=== PATIENT | male | born 1970 | race Caucasian/White ===

== ENCOUNTER 2019-07-26 09:43 | Emergency (ER) | payer OTHER, SELFPAY ==
--- NOTE | 2019-07-26 10:11 | DI.RAD.S_ITS ---
PROCEDURE: XR RIBS LT MIN 3V W CXR1V INDICATIONS: fall pain TECHNIQUE: 3 views of the left ribs were acquired, along with a single view chest. COMPARISON: [facility], , XR CHEST 1 VIEW, 12/06/2018, 21:17. FINDINGS: Surgical changes and devices: None Bones and chest wall: No displaced left fractures or dislocations. No suspicious bony lesions. Overlying soft tissues appear unremarkable. Lungs and pleura: No pleural effusions or pneumothorax. Lungs appear clear. Mediastinum: Mediastinal contours appear normal. Heart size is normal. IMPRESSION: No displaced left rib fractures are appreciated. No pneumothorax. Dictated by: Fly Antoine M.D. on 07/26/2019 at 9:49 Approved by: Fly Antoine M.D. on 07/26/2019 at 9:50
[2019-07-26 10:13] VITALS: BP 205/139; PULSE 92; RESP 18; TEMP 36.8; O2SAT 96; BMI 44.3
[2019-07-26] MEDS: KETOROLAC 60 MG/2 ML VIAL 30 MG IM (11:10)
--- NOTE | 2019-07-26 11:12 | ED_ITS ---
HPI - Fall <RONNY Charles - Last Filed: 07/26/19 21:50> General Chief Complaint: Abdominal Pain Stated Complaint: fell/ cracked rib Time Seen by Provider: 07/26/19 10:11 Source: patient Mode of arrival: Ambulatory History of Present Illness HPI Narrative: 48-year-old male presents to the emergency department complaining of left rib pain after fall. He states he was walking into a walk-in freezer at work when he slipped and fell hitting the left side of his ribs near the axillary region against a [place]. He denies hitting his head or any other injuries. Patient denies previous injury to this area. He denies nausea, vomiting, diarrhea, abdominal pain fevers, chills, chest pain, shortness of breath, or other concerns. He denies any significant medical history or allergies. Patient states does have history of high blood pressure but does not take any medications for this he states I am not a pill person. He also reports that his blood pressure today of 211/102 is lower than usual. Patient denies any headache, chest pain, dizziness, other concerns. Review of Systems <RONNY Charles - Last Filed: 07/26/19 21:50> Review of Systems Narrative: REVIEW OF SYSTEMS: GENERAL: Denies fever or chills. HENT: No head trauma. EYES: No double vision or vision loss. CARDIOVASCULAR: No chest pain or syncope. RESPIRATORY: No shortness of breath or cough. GASTROINTESTINAL: No nausea, vomiting, diarrhea, or constipation. MUSCULOSKELETAL: Complains of rib pain, see HPI. INTEGUMENTARY: No rash, lesions, or pruritus. NEURO: No numbness, tingling. PSYCH: No behavior or mood changes. Patient History <RONNY Charles - Last Filed: 07/26/19 21:50> Medical History No significant medical problems (Inactive) Social History Smoking Status: Former smoker Smoking Status: Former smoker Substance Use Type: does not use Exam <RONNY Charles - Last Filed: 07/26/19 21:50> Initial Vital Signs Initial Vital Signs: Vital Signs Temperature 98.2 F 07/26/19 10:13 Pulse Rate 92 H 07/26/19 10:13 Respiratory Rate 18 07/26/19 10:13 Blood Pressure 205/139 H 07/26/19 10:13 Pulse Oximetry 96 07/26/19 10:13 PHYSICAL EXAMINATION: GENERAL: Obese, alert, and cooperative. Answers questions promptly and appropriately. Vital signs noted. HENT: Normocephalic, atraumatic. EYES: Symmetrical, sclera white, no periorbital swelling. CARDIOVASCULAR: S1 and S2 sounds normal. Regular rate and rhythm, no murmurs, clicks, or bruits. No pedal edema. RESPIRATORY: Normal respiratory rate, trachea midline, airway patent. No stridor, nasal flaring or accessory muscle use. Lungs are clear in all mulligan. Patient is seen taking shallow breaths due to pain unless otherwise instructed. MUSCULOSKELETAL: Tenderness with palpation lateral left ribs approximately miah und rib 6 and 7. Pain is reproduced when patient raises his arm above head. Full range of motion of shoulder. No bruising or erythema or rash. Normal gait and coordination. Equal tone and mass bilaterally. No spinal tenderness or deformities. EXTREMITIES: CMS intact. SKIN: Warm, dry, soft, appropriate color for ethnicity. No lesions, rashes, or wounds. NEURO: Alert and Oriented X 3. No sensory deficits. PSYCH: Appropriate affect and mood. <Miladys Goode DO - Last Filed: 11/26/19 11:14> Initial Vital Signs Initial Vital Signs: Vital Signs Temperature 98.2 F 07/26/19 10:13 Pulse Rate 92 H 07/26/19 10:13 Respiratory Rate 18 07/26/19 10:13 Blood Pressure 205/139 H 07/26/19 10:13 Pulse Oximetry 96 07/26/19 10:13 Course <RONNY Charles - Last Filed: 07/26/19 21:50> Course Course Narrative: Patient was given Toradol in the emergency department to help with pain. Orders Ordered: Discontinued Medications Ketorolac Tromethamine (Toradol) 30 mg IM NOW ONE Stop: 07/26/19 11:05 Last Admin: 07/26/19 11:10 Dose: 30 mg Documented by: CPRUITT Vital Signs Vital signs: Vital Signs - 8 hr 07/26/19 10:13 07/26/19 11:21 Temperature 98.2 F Pulse Rate 92 H 99 H Respiratory Rate 18 18 Blood Pressure 205/139 H 211/102 H Pulse Oximetry 96 96 <Miladys Goode DO - Last Filed: 11/26/19 11:14> Orders Ordered: Discontinued Medications Ketorolac Tromethamine (Toradol) 30 mg IM NOW ONE Stop: 07/26/19 11:05 Last Admin: 07/26/19 11:10 Dose: 30 mg Documented by: CPRUITT Vital Signs Vital signs: Vital Signs - 8 hr 07/26/19 10:13 07/26/19 11:21 Temperature 98.2 F Pulse Rate 92 H 99 H Respiratory Rate 18 18 Blood Pressure 205/139 H 211/102 H Pulse Oximetry 96 96 MDM - Fall <Brigid WashingtonRONNY - Last Filed: 07/26/19 21:50> Medical Records Attestation: I reviewed the patient's medical records. Lab Data Attestation: I reviewed the patient's lab results. Imaging Data Chest x-ray: Radiologist's Impression: [place] [address] XRay Report Signed Patient: Edgardo Teague lMR#: [id number] : 1970Acct:[id number] Age/Sex: 48 / MDate of Service: 07/26/19 Loc: ED Accession Number: [id number] Procedure: XR ribs LT min 3V w CXR1V Ordering Provider: Miladys Goode D.O. PROCEDURE: XR RIBS LT MIN 3V W CXR1V INDICATIONS: fall pain TECHNIQUE: 3 views of the left ribs were acquired, along with a single view chest. COMPARISON: [facility], , XR CHEST 1 VIEW, 12/06/2018, 21:17. FINDINGS: Surgical changes and devices: None Bones and chest wall: No displaced left fractures or dislocations. No suspicious bony lesions. Overlying soft tissues appear unremarkable. Lungs and pleura: No pleural effusions or pneumothorax. Lungs appear clear. Mediastinum: Mediastinal contours appear normal. Heart size is normal. IMPRESSION: No displaced left rib fractures are appreciated. No pneumothorax. Dictated by: Fly Antoine M.D. on 07/26/2019 at 9:49 Approved by: Fly Antoine M.D. on 07/26/2019 at 9:50 MDM Narrative Medical decision making narrative: 28-year-old male who clearly has untreated hypertension without symptoms today, presents for left lateral rib pain after fall. X-rays negative for fractures. Pain is reproducible on exam which is evident that musculoskeletal injuries involved. Most likely rib contusion due to description of fall, location of pain, and reproduction of pain with palpation. Less likely costochondritis due to location of rib pain, less likely lung injury as x-ray was negative for fracture patient denies shortness of breath. Patient was encouraged to follow up with his primary care provider for further evaluation if symptoms continue. We discussed the importance of establishing a primary care provider to treat his blood pressure. Patient grew plan of care verbalized understanding. Return precautions given. Discharge Plan Departure Patient Disposition: Home Clinical Impression: Contusion of rib Discharge Date/Time: 07/26/19 11:23 Instructions: DI for Rib Contusion Activity Restrictions/Additional Instructions: Thank you for entrusting me with your care today. As discussed, yourr x-rays are negative for fractures. You most likely have a rib contusion. Remember to take 10 deep breaths 10 times a day to prevent pneumonia. You may take ibuprofen for pain (please not take this until 8 hours after a Toradol shot), and Tylenol. Follow up with your primary care provider in 1-2 weeks for further evaluation if your symptoms continue. Return emergency department for any new or worsening symptoms such as shortness of breath, chest pain, high fevers, or other concerns.
[2019-07-26 11:21] VITALS: BP 211/102; PULSE 99; RESP 18; O2SAT 96
== END 2019-07-26 11:23 | disposition home or self-care (01) ==
PROVIDERS: Emergency Provider Nurse Practitioner
DX: S20.212A Contusion of left front wall of thorax, initial encounter (principal); W01.10XA Fall on same level from slipping, tripping and stumbling with subsequent striking against unspecified object, initial encounter; Y99.0 Civilian activity done for income or pay
CPT/HCPCS: 71101; 96372; 99283; J1885

== ENCOUNTER 2021-08-24 07:41 | Inpatient (IN) | payer OTHER, MEDICAID, SELFPAY ==
[2021-08-24] VITALS (52 sets, daily range): BP systolic 174–238; BP diastolic 82–138; PULSE 60–98; RESP 3–35; TEMP 35.9–37.2; O2SAT 93–98; BMI 40.6; BMI 39.0
--- NOTE | 2021-08-24 07:40 | DI.CT.S_ITS ---
PROCEDURE: CT STROKE INDICATIONS: right weakness TECHNIQUE: Noncontrast 4.5 mm thick angled axial sections acquired from the foramen magnum to the vertex, with coronal reformats. For radiation dose reduction, the following was used: automated exposure control, adjustment of mA and/or kV according to patient size. COMPARISON: None. FINDINGS: Image quality: Excellent. CSF spaces: Basal cisterns are patent. No extra-axial fluid collections. Ventricles are normal in size and shape. Brain: No midline shift. No intracranial masses or hemorrhage. [place]-white matter interface is normal. Atherosclerotic calcification noted in the left vertebral artery. There is mild, diffuse cerebral volume loss. There are mild periventricular and subcortical white matter chronic microvascular ischemic changes. Skull and face: Calvarium and visualized facial bones are intact, without suspicious lesions. Sinuses: Mucosal thickening noted in the maxillary sinuses bilaterally, the sphenoid sinuses bilaterally, the ethmoid air cells bilaterally in the frontal sinuses bilaterally. The mastoids are clear. IMPRESSION: 1. No acute intracranial disease process. 2. No intracranial hemorrhage. 3. Pansinusitis. 4. Findings discussed with Dr. Goode on August 24, 2021 at 8:01 a.m.. This study fulfills neurological imaging criteria for inclusion or exclusion of acute stroke therapies based on available published neurological imaging guidelines. Dictated by: Mary Lou Kay MD, PhD on 08/24/2021 at 8:03 Approved by: Mary Lou Kay MD, PhD on 08/24/2021 at 8:07
--- NOTE | 2021-08-24 07:47 | ED_ITS ---
HPI - Neuro Symptoms/Deficit General Chief Complaint: Altered Mental Status Stated Complaint: possible stroke Time Seen by Provider: 08/24/21 07:50 History of Present Illness HPI Narrative: Patient is a 50-year-old male history of diabetes presenting as a code stroke. Last known well was midnight when he went to bed. Woke up this morning unable to move right side both arm and leg facial droop. He is right-hand dominant. 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 He lives with a 16-year-old daughter who states that he just came home from a trip recently. Patient states that yesterday he was at his normal baseline Related Data Home Medications Medication Instructions Recorded Confirmed No Known Home Medications 08/24/21 08/24/21 Allergies Allergy/AdvReac Type Severity Reaction Status Date / Time No Known Drug Allergies Allergy Verified 08/24/21 08:07 Review of Systems Review of Systems Narrative: GENERAL: Denies chills, fatigue, malaise, fever, sweats, travel HEENT: Denies sinus pain, ear pain, sore throat, difficulty swallowing, neck pain RESPIRATORY: Denies dyspnea, cough, wheezing, hemoptysis, sputum. CARDIOVASCULAR: Denies chest pain, palpitations, orthopnea, edema GASTROINTESTINAL: Denies nausea, vomiting, abdominal pain, diarrhea, constipation, melena. : Denies dysuria, frequency, incontinence, hematuria, urinary retention, flank pain. MUSCULOSKELETAL: Denies weakness, joint pain, or bony pain SKIN: No rash, no erythema, no pruritus NEUROLOGIC: See HPI PSYCHIATRIC: No concerning psychosocial issues. 12 point review of systems is negative except for those stated above and HPI Patient History Medical History (Updated 08/24/21 @ 10:55 by Giovany Marrero DO) CVA (cerebral vascular accident) Diabetes mellitus Surgical History (Updated 08/24/21 @ 10:55 by Giovany Marrero DO) No significant past surgical history Family History (Updated 08/24/21 @ 11:00 by Giovany Marrero DO) Mother Hypertension Father No pertinent past medical history Social History household members: children Smoking Status: Former smoker alcohol intake: never Smoking Status: Former smoker Substance Use Type: does not use Exam Initial Vital Signs Initial Vital Signs: Vital Signs Temperature 98.5 F 08/24/21 07:41 Pulse Rate 76 08/24/21 07:41 Respiratory Rate 18 08/24/21 07:41 Blood Pressure 197/112 H 08/24/21 07:41 Pulse Oximetry 96 08/24/21 07:41 GENERAL: Alert male HEENT: Head atraumatic,EOMI, pupils reactive, left facial droop CARDIOVASCULAR: Regular rate and rhythm without murmurs, rubs or gallops. RESPIRATORY: Breath sounds equal bilaterally, no wheezes rales or rhonchi. ABDOMEN: Soft, nontender. Normoactive bowel sounds all 4 quadrants. No guarding or rebound. EXTREMITIES: Normal range of motion, no clubbing or edema. Neurovascularly intact NEUROLOGICAL: Alert and oriented x4. Inability to move side mild left facial droop some mild slurring of speech as well. SKIN: Warm, dry, no laceration, no petechiae, no rashes or lesions. Scores NIH Stroke Scale Level of Conciousness: Alert, keenly responsive Ask month/age: Answers both questions correctly. Open/close eyes, close hand: Performs both tasks correctly Best gaze horizontal: Normal Visual mulligan: No visual loss Facial palsy: Minor paralysis, flattened nasolabial fold, asymmetry on smiling Left arm drift: No drift for full 10 sec Right arm drift: No effort against gravity Left leg drift: No drift for full 5 sec Right leg drift: No effort against gravity Limb ataxia: Absent Sensory on face/arms/legs: Normal, no sensory loss Best language: Mild to moderate, slurs some words Dysarthria: Mild to mod,some slurring Extinction or inattention: No abnormality Total NIH Stroke scale score: 9 Course Orders Ordered: ED Orders 08/24/21 07:50 Urine Drug Screen, Rapid Stat 08/24/21 08:25 COVID19 -Nasal swab/Pre-Proc Stat 08/25/21 05:00 Hemoglobin A1C% w Est Avg Glu Routine Acetaminophen (Acetaminophen 325 Mg Tablet) 650 mg PO Q6HR PRN PRN Reason: pain Last Admin: 08/24/21 18:20 Dose: 650 mg Documented by: Dextrose (Dextrose 50 % In Water 25 Gm/50 Ml Syringe) 25 gm IV PRN PRN PRN Reason: Hypoglycemia Enoxaparin Sodium (Enoxaparin 40 Mg/0.4 Ml Syringe) 40 mg SUBCUT DAILY [facility] Last Admin: 08/24/21 09:31 Dose: 40 mg Documented by: Sodium Chloride (Normal Saline 0.9%) 1,000 mls @ 75 mls/hr IV CONT [facility] Last Admin: 08/24/21 08:11 Dose: 150 mls/hr Documented by: JOLLY Insulin Human Lispro (Insulin Lispro 100 Unit/Ml 3ml Vial) 0 unit SUBCUT ACHS [facility]; Protocol Last Admin: 08/24/21 17:21 Dose: 3 unit Documented by: Labetalol HCl (Labetalol 20 Mg/4 Ml Syringe) 10 mg IV Q2H PRN PRN Reason: SBP >220 Naloxone HCl (Naloxone 0.4 Mg/Ml Vial) 0.2 mg IV Q2MIN PRN PRN Reason: Opiate Reversal Nicotine (Nicotine 21 Mg Patch) 21 mg TOP DAILY [facility] Last Admin: 08/24/21 18:17 Dose: Not Given Documented by: Discontinued Medications Aspirin (Aspirin 300 Mg Supp) 300 mg ND NOW ONE Stop: 08/24/21 08:46 Last Admin: 08/24/21 09:19 Dose: Not Given Documented by: JOLLY Vital Signs Vital signs: Vital Signs - 8 hr 08/24/21 07:41 08/24/21 07:53 08/24/21 07:54 Temperature 98.5 F Pulse Rate 76 80 78 Respiratory Rate 18 23 22 Blood Pressure 197/112 H 197/112 H Pulse Oximetry 96 97 96 08/24/21 07:56 08/24/21 07:58 08/24/21 08:00 Temperature Pulse Rate 76 73 75 Respiratory Rate 21 23 22 Blood Pressure 215/107 H 230/106 H Pulse Oximetry 94 95 95 08/24/21 08:01 08/24/21 08:14 08/24/21 08:20 Temperature Pulse Rate 80 72 73 Respiratory Rate 18 20 20 Blood Pressure 238/138 H 212/97 H 212/103 H Pulse Oximetry 95 95 96 08/24/21 08:30 08/24/21 08:31 08/24/21 08:41 Temperature Pulse Rate 78 73 79 Respiratory Rate 21 21 21 Blood Pressure 199/91 H 194/108 H Pulse Oximetry 95 95 95 08/24/21 08:51 08/24/21 09:00 Temperature Pulse Rate 74 74 Respiratory Rate 21 21 Blood Pressure 209/91 H Pulse Oximetry 96 96 MDM - Neuro Symptoms/Deficit Lab Data Result diagrams: 08/24/21 07:53 08/24/21 07:53 Labs: Lab Results 08/24/21 08/24/21 08/24/21 Range/Units 07:53 07:53 07:53 WBC 8.6 (4.5-11.0) X10^3/uL RBC 5.08 (4.5-5.9) X10^6/uL Hgb 15.2 (13.5-17.5) g/dL Hct 45.2 (41-53) % MCV 88.8 (80-100) fL MCH 29.9 (26-34) PG MCHC 33.6 (30-36) % RDW 13.7 (11.6-14.8) % Plt Count 153 (150-400) X10^3/uL Neut % (Auto) 64.5 (50-75) % Lymph % (Auto) 23.2 L (25-40) % [place] % (Auto) 8.1 (3-14) % Eos % (Auto) 3.4 (2-4) % Baso % (Auto) 0.8 (0-2) % Neut # (Auto) 5500 (8039-6921) /uL Lymph # (Auto) 2000 (5645-2150) /uL [place] # (Auto) 700 (0-900) /uL Eos # (Auto) 300 (0-450) /uL Baso # (Auto) 100 (0-100) /uL PT 12.0 (10.1-12.7) SECONDS INR 1.1 (0.9-1.3) APTT 31 (26.4-36.2) SECONDS Sodium 133 L (137-145) mmol/L Potassium 4.4 (3.4-5.1) mmol/L Chloride 101 (98-107) mmol/L Carbon Dioxide 28 (22-32) mmol/L BUN 17 (9-20) mg/dL Creatinine 0.91 (0.66-1.25) mg/dL Estimated GFR > 60.0 (>60) mL/min BUN/Creatinine Ratio 18.7 (6-22) Glucose 253 H (70-100) mg/dL Calcium 8.9 (8.4-10.2) mg/dL Total Bilirubin 0.7 (0.2-1.3) mg/dL AST 42 (17-59) IU/L ALT 42 (<50) IU/L Alkaline Phosphatase 60 (38-126) U/L Total Creatine Kinase 102 (55-170) U/L CK-MB (CK-2) 2.39 H (<2.37) ng/mL CK-MB (CK-2) Rel Index 2.3 (1.5-5.0) % Troponin I 0.061 H (0.01-0.034) ng/mL Total Protein 7.2 (6.3-8.2) g/dL Albumin 4.0 (3.5-5.0) g/dL Globulin 3.2 (1.7-4.1) g/dL Albumin/Globulin Ratio 1.3 (1.0-2.8) Ethyl Alcohol < 10 ( - 10) mg/dL Point of Care Testing Glucose POC [address] scan - head: Radiologist's Impression: PROCEDURE:? CT STROKE ? INDICATIONS:? right weakness ? TECHNIQUE:? Noncontrast 4.5 mm thick angled axial sections acquired from the foramen magnum to the vertex, with coronal reformats.? For radiation dose reduction, the following was used:? automated exposure control, adjustment of mA and/or kV according to patient size.? ? COMPARISON:? None. ? FINDINGS:? Image quality:? Excellent.? ? CSF spaces:? Basal cisterns are patent.? No extra-axial fluid collections.? Ventricles are normal in size and shape.? ? Brain:? No midline shift.? No intracranial masses or hemorrhage.? Vieira-white matter interface is normal.? Atherosclerotic calcification noted in the left vertebral artery.? There is mild, diffuse cerebral volume loss.? There are mild periventricular and subcortical white matter chronic microvascular ischemic changes.? ? Skull and face:? Calvarium and visualized facial bones are intact, without suspicious lesions.? ? Sinuses:? Mucosal thickening noted in the maxillary sinuses bilaterally, the sphenoid sinuses bilaterally, the ethmoid air cells bilaterally in the frontal sinuses bilaterally.? The mastoids are clear.? ? IMPRESSION:? ? 1. No acute intracranial disease process. ? 2. No intracranial hemorrhage. ? 3. Pansinusitis. ? 4. Findings discussed with Dr. Goode on August 24, 2021 at 8:01 a.m.. ? This study fulfills neurological imaging criteria for inclusion or exclusion of acute stroke therapies based on available published neurological imaging guidelines.? ? ? Dictated by: Mary Lou Kay MD, PhD on 08/24/2021 at 8:03 ? ? CTA - brain/neck: Radiologist's Impression: PROCEDURE:? CT ANGIO HEAD AND NECK ? INDICATIONS:? right weakness leg and arm ? TECHNIQUE:? After the administration of intravenous contrast, 1 mm thick sections acquired from the aortic arch through the [place].? Post-contrast 4.5 mm thick sections t hen re-acquired from the foramen magnum to the vertex.? 3-dimensional zwidlbk-evhfoffkl-jyejpvnxsj (MIP) and/or volume rendering reformats were acquired of the central intracranial vasculature and neck separately. ? COMPARISON:? [facility], CT, CT STROKE, 08/24/2021, 7:47. ? FINDINGS:? Image quality:? Excellent.? ? BRAIN:? CSF spaces:? Ventricles are normal in size and shape.? Basal cisterns are patent.? No extra-axial fluid collections.? ? Brain:? No midline shift.? No intracranial bleeds or masses.? Vieira-white matter interface appears intact.? There is mild, diffuse cerebral volume loss.? There are mild periventricular and subcortical white matter chronic microvascular ischemic changes.? ? Skull and face:? Calvarium and facial bones appear intact, without suspicious lesions.? Orbits appear normal.? ? Sinuses:? Pansinus mucosal thickening.? The mastoids are clear.? ? HEAD CT ANGIOGRAPHY:? Anterior circulation:? Intracranial internal carotid arteries are normal in size and flow.? The flow within the paired anterior cerebral arteries is normal and symmetric.? The flow within the middle cerebral arteries is normal and symmetric.? The anterior communicating artery is seen.? No aneurysms are seen.? ? Posterior circulation:? The right vertebral artery terminates in a right posteri or inferior cerebellar artery.? Normal flow noted in the left vertebral artery.? Scattered atherosclerotic plaque noted in the V4 segment of the left vertebral artery which causes multifocal mild stenosis.? Normal flow noted in the basilar artery.? Flow within the posterior cerebral arteries is normal and symmetric.? No aneurysms are seen. ? Dural sinuses demonstrate normal postcontrast enhancement. ? ? NECK CT ANGIOGRAPHY:? Carotid system:? The great vessels demonstrate a conventional anatomy as they arise from the aortic arch.? The origins of the common carotid arteries appear patent.? The common carotid arteries demonstrate normal caliber and courses.? Calcified and soft atherosclerotic plaque noted in the origins of the internal carotid arteries bilaterally which causes less than 50% stenosis of the vessels.? ? Posterior circulation:? The origins of the vertebral arteries both appear widely patent.? The more superior extracranial portions of both vertebral arteries also demonstrate normal courses and calibers.? They join to form a normal appearing basilar artery.? ? Soft tissues:? Visualized neck soft tissues demonstrate no suspicious abnormalities.? ? Bones:? No suspicious bony lesions.? Visualized cervical spine appears normally aligned.? IMPRESSION:? ? 1. No acute intracranial disease process. ? 2. No large vessel occlusion, hemodynamically significant vascular stenosis, vascular dissection or aneurysm.? ? Any quantitative measurements of stenosis were performed using NASCET criteria.? ? ? Dictated by: Mary Lou Kay MD, PhD on 08/24/2021 at 8:08 ? ? ECG Data Interpretation: Normal sinus rhythm rate 74 ND interval 154 QRS 1 [address] changes MDM Narrative Medical decision making narrative: 0805 Dr. Nesbitt, neurology, has been updated patient's symptoms test results at this time recommends waiting for CT angio to see if there is a large vessel occlusion. Certainly out of the window for tPA. He is free updated CT angio does not show any large vessel occlusion recommends aspirin 81 mg Plavix 75 for 21 days blood pressure recommendations systolic less than 220/110 Patient quite hesitant to have a rectal suppository. He does follow applesauce but choked on water at this time would recommend waiting for speech therapy and further evaluation. Dr. Marrero, updated patient's symptoms test results and is happy to accept patient Discharge Plan Departure Patient Disposition: Admitted As Inpatient Clinical Impression: CVA (cerebral vascular accident) Admit Date/Time: 08/24/21 09:09 Admit Provider: Giovany Marrero
--- NOTE | 2021-08-24 07:55 | DI.CT.S_ITS ---
PROCEDURE: CT ANGIO HEAD AND NECK INDICATIONS: right weakness leg and arm TECHNIQUE: After the administration of intravenous contrast, 1 mm thick sections acquired from the aortic arch through the [place] of [place]. Post-contrast 4.5 mm thick sections then re-acquired from the foramen magnum to the vertex. 3-dimensional rqnjkwj-[id number] (MIP) and/or volume rendering reformats were acquired of the central intracranial vasculature and neck separately. COMPARISON: [facility], CT, CT STROKE, 08/24/2021, 7:47. FINDINGS: Image quality: Excellent. BRAIN: CSF spaces: Ventricles are normal in size and shape. Basal cisterns are patent. No extra-axial fluid collections. Brain: No midline shift. No intracranial bleeds or masses. [place]ieira-white matter interface appears intact. There is mild, diffuse cerebral volume loss. There are mild periventricular and subcortical white matter chronic microvascular ischemic changes. Skull and face: Calvarium and facial bones appear intact, without suspicious lesions. Orbits appear normal. Sinuses: Pansinus mucosal thickening. The mastoids are clear. HEAD CT ANGIOGRAPHY: Anterior circulation: Intracranial internal carotid arteries are normal in size and flow. The flow within the paired anterior cerebral arteries is normal and symmetric. The flow within the middle cerebral arteries is normal and symmetric. The anterior communicating artery is seen. No aneurysms are seen. Posterior circulation: The right vertebral artery terminates in a right posterior inferior cerebellar artery. Normal flow noted in the left vertebral artery. Scattered atherosclerotic plaque noted in the V4 segment of the left vertebral artery which causes multifocal mild stenosis. Normal flow noted in the basilar artery. Flow within the posterior cerebral arteries is normal and symmetric. No aneurysms are seen. Dural sinuses demonstrate normal postcontrast enhancement. NECK CT ANGIOGRAPHY: Carotid system: The great vessels demonstrate a conventional anatomy as they arise from the aortic arch. The origins of the common carotid arteries appear patent. The common carotid arteries demonstrate normal caliber and courses. Calcified and soft atherosclerotic plaque noted in the origins of the internal carotid arteries bilaterally which causes less than 50% stenosis of the vessels. Posterior circulation: The origins of the vertebral arteries both appear widely patent. The more superior extracranial portions of both vertebral arteries also demonstrate normal courses and calibers. They join to form a normal appearing basilar artery. Soft tissues: Visualized neck soft tissues demonstrate no suspicious abnormalities. Bones: No suspicious bony lesions. Visualized cervical spine appears normally aligned. IMPRESSION: 1. No acute intracranial disease process. 2. No large vessel occlusion, hemodynamically significant vascular stenosis, vascular dissection or aneurysm. Any quantitative measurements of stenosis were performed using NASCET criteria. Dictated by: Mary Lou Kay MD, PhD on 08/24/2021 at 8:08 Approved by: Mary Lou Kay MD, PhD on 08/24/2021 at 8:17
[2021-08-24 08:04] LABS: Add Manual Diff / Slide Review NO; Basophils Absolute Auto 100 /uL (0-100); Basophils Percent Auto 0.8 % (0-2); Eosinophils Absolute Auto 300 /uL (0-450); Eosinophils Percent Auto 3.4 % (2-4); Hematocrit 45.2 % (41-53); Hemoglobin 15.2 g/dL (13.5-17.5); Lymphocytes Absolute Auto 2000 /uL (1100-4500); Lymphocytes Percent Auto 23.2 % (25-40); Mean Corpuscular HGB Conc 33.6 % (30-36); Mean Corpuscular Hemoglobin 29.9 PG (26-34); Mean Corpuscular Volume 88.8 fL (80-100); Monocytes Absolute Auto 700 /uL (0-900); Monocytes Percent Auto 8.1 % (3-14); Neutrophils Absolute Auto 5500 /uL (1500-7000); Neutrophils Percent Auto 64.5 % (50-75); Platelet Count 153 X10^3/uL (150-400); Red Blood Cell Count 5.08 X10^6/uL (4.5-5.9); Red Cell Distribution Width 13.7 % (11.6-14.8); White Blood Cell Count 8.6 X10^3/uL (4.5-11.0)
[2021-08-24] MEDS: SODIUM CHLORIDE 0.9% 1,000 ML 150 ML IV (08:11)
[2021-08-24 08:12] LABS: INR 1.1 (0.9-1.3)
[2021-08-24 08:14] LABS: PTT Partial Thromboplastin Tim 31 SECONDS (26.4-36.2)
[2021-08-24 08:15] LABS: Alanine Aminotransferase 42 IU/L (<50); Albumin Globulin Ratio 1.3 (1.0-2.8); Alkaline Phosphatase 60 U/L (38-126); Aspartate Aminotransferase 42 IU/L (17-59); BUN Creatinine Ratio 18.7 (6-22); Bilirubin Total 0.7 mg/dL (0.2-1.3); Blood Urea Nitrogen 17 mg/dL (9-20); Calcium 8.9 mg/dL (8.4-10.2); Carbon Dioxide 28 mmol/L (22-32); Chloride 101 mmol/L (98-107); Creatine Kinase 102 U/L (55-170); Estimated Glomerular Filt Rate > 60.0 mL/min (>60); Ethanol (ETOH) < 10 mg/dL; Globulin 3.2 g/dL (1.7-4.1); Glucose 253 mg/dL (70-100); Potassium 4.4 mmol/L (3.4-5.1); Sodium 133 mmol/L (137-145); Total Protein 7.2 g/dL (6.3-8.2)
[2021-08-24 08:26] LABS: Troponin I 0.061 ng/mL (0.01-0.034)
[2021-08-24 08:30] LABS: CKMB % Relative Index 2.3 % (1.5-5.0); Creatine Kinase MB 2.39 ng/mL (<2.37); HEMOLYSIS 27 (0-50)
--- NOTE | 2021-08-24 08:52 | DI.MRI.S_ITS ---
PROCEDURE: MR HEAD/BRAIN WO CON INDICATIONS: CVA TECHNIQUE: Noncontrast axial T1 spin echo, axial T2 fast spin echo, sagittal and axial FLAIR, coronal T2 fast spin echo, axial gradient echo, axial diffusion and ADC through the brain. COMPARISON: None. FINDINGS: Subtle restricted diffusion in the left amari with mild associated FLAIR signal hyperintensity is indicative of acute to early subacute ischemia. No additional restricted diffusion. No unexpected intracranial susceptibility. No findings of abnormal extra-axial fluid collection, mass effect, or midline shift. Patent ventricular system and basilar cisterns. Mild global cerebral volume loss and moderate chronic microvascular ischemic change. Remote left juarez radiata lacunar infarct. No significant orbital abnormality. IMPRESSION: Acute versus early subacute left pontine infarct. Dictated by: Dominick Morrison M.D. on 08/24/2021 at 11:51 Approved by: Dominick Morrison M.D. on 08/24/2021 at 11:52
--- NOTE | 2021-08-24 09:29 | DI.RAD.S_ITS ---
PROCEDURE: XR CHEST 1V INDICATIONS: stroke TECHNIQUE: One view of the chest was acquired. COMPARISON: None. FINDINGS: Surgical changes and devices: None. Lungs and pleura: Low lung volumes. The visible lung mulligan are clear. No pneumothorax or large pleural effusion. Mediastinum: Mediastinal contours appear normal. Heart size is normal. Bones and chest wall: No suspicious bony lesions. Overlying soft tissues appear unremarkable. IMPRESSION: 1. Given low lung volumes, no acute cardiopulmonary disease. Dictated by: Joellen Garces M.D. on 08/24/2021 at 9:45 Approved by: Joellen Garces M.D. on 08/24/2021 at 9:45
[2021-08-24] MEDS: ENOXAPARIN 40 MG/0.4 ML SYRINGE SUBCUT (09:31)
[2021-08-24 09:58] LABS: UR Morphine/Opiate cutoff 300 Negative (Negative); Ur Creatinine Normal (Normal); Ur Specific Gravity Normal (Normal); Urine Amphetamines Negative (Negative); Urine Barbiturates Negative (Negative); Urine Benzodiazepines Negative (Negative); Urine Cocaine Negative (Negative); Urine MDMA Negative (Negative); Urine Methadone Negative (Negative); Urine Methamphetamines Negative (Negative); Urine Oxycodone Negative (Negative); Urine Phencyclidine Negative (Negative); Urine Tetrahydrocannabinol Negative (Negative); Urine Tricyclic Antidepressant Negative (Negative); Urine pH Normal (Normal)
[2021-08-24 10:08] LABS: COVID19 -Nasal RAPID Negative (Negative)
--- NOTE | 2021-08-24 10:53 | PM.HP.1 ---
History of Present Illness History of Present Illness Date Patient Seen: 08/24/21 Time Patient Seen: 10:53 Chief complaint: possible stroke Narrative: This is a 50-year-old male with a past medical history of diabetes and prior small stroke according to him, has not seen a primary care doctor in many years. He woke up this morning with an inability to move his right side, as well as a facial droop and slurred speech. His last known normal was when he went to sleep last night which was at midnight. He denies any numbness on his right side, and the right side of his face is actually slightly hypersensitive currently. He denies any recent fever, chills, chest pain. He has had intermittent palpitations, but mainly with exertion. He denies any shortness of breath, abdominal pain, nausea, vomiting, dysuria, urinary frequency, lower extremity edema. In the emergency room, the patient was markedly hypertensive, chemistries revealed a mild hyponatremia with sodium of 133, but glucose was elevated at 253. Troponin was indeterminate at 0.061. Urine drug screen was negative. Alcohol level was negative. COVID-[address] head without contrast was unremarkable, as was a CT angiogram of the head and neck, with no significant stenosis. Telestroke was consulted in the emergency room, given no significant large vessel occlusion and that he was outside the tPA window they recommended medical management with aspirin. Patient History Medical History (Updated 08/24/21 @ 10:55 by Giovany Marrero DO) CVA (cerebral vascular accident) Diabetes mellitus Surgical History (Updated 08/24/21 @ 10:55 by Giovany Marrero DO) No significant past surgical history Family & Social History Family History (Updated 08/24/21 @ 11:00 by Giovany Marrero DO) Mother Hypertension Father No pertinent past medical history Social History: household members children Prior Living Arrangements House Safety & Behavioral: Feels Safe in Current Yes Environment Been Physically Hurt or No Threatened By a Person Suicidal Ideation Description None Suicide Plan Description No Plan Tobacco & Substance use: Smoking Status Former smoker alcohol intake never Substance Use Type does not use Meds Home Medications and Allergies Home Medications Medication Instructions Recorded Confirmed Type No Known Home Medications 08/24/21 08/24/21 History Allergies Allergy/AdvReac Type Severity Reaction Status Date / Time No Known Drug Allergies Allergy Verified 08/24/21 08:07 Review of Systems Review of Systems Narrative: All other systems reviewed with the patient and are negative unless otherwise stated. Exam Vital Signs (past 8 hours): - 08/24/21 07:41 08/24/21 07:53 08/24/21 07:54 Temperature 98.5 F Pulse Rate 76 80 78 Respiratory Rate 18 23 22 Blood Pressure 197/112 H 197/112 H Pulse Oximetry 96 97 96 08/24/21 07:56 08/24/21 07:58 08/24/21 08:00 Temperature Pulse Rate 76 73 75 Respiratory Rate 21 23 22 Blood Pressure 215/107 H 230/106 H Pulse Oximetry 94 95 95 08/24/21 08:01 08/24/21 08:14 08/24/21 08:20 Temperature Pulse Rate 80 72 73 Respiratory Rate 18 20 20 Blood Pressure 238/138 H 212/97 H 212/103 H Pulse Oximetry 95 95 96 08/24/21 08:30 08/24/21 08:31 08/24/21 08:41 Temperature Pulse Rate 78 73 79 Respiratory Rate 21 21 21 Blood Pressure 199/91 H 194/108 H Pulse Oximetry 95 95 95 08/24/21 08:51 08/24/21 09:00 08/24/21 09:23 Temperature Pulse Rate 74 74 71 Respiratory Rate 21 21 22 Blood Pressure 209/91 H Pulse Oximetry 96 96 96 08/24/21 09:24 08/24/21 09:30 08/24/21 09:40 Temperature Pulse Rate 71 69 70 Respiratory Rate 17 19 20 Blood Pressure 192/99 H 204/102 H 184/99 H Pulse Oximetry 93 94 95 Oxygen Delivery Method Room Air Narrative Exam Narrative: General:? Patient is well developed and well nourished, tearful. HEENT:? Normocephalic, atraumatic, extraocular muscles intact, oral pharynx is clear and mucous membranes are moist. Dentition is poor. Neck: supple and symmetric, trachea is midline, no cervical adenopathy. Negative for JVD Chest:? Normal AP diameter and contour without kyphoscoliosis, no tachypnea, equal chest rise bilaterally. Lungs:? CTA b/l no wheezing rhonchi or rales. Cardio:?RRR no m/r/g. Abdomen: S NT ND. No CVA tenderness. Musculoskeletal:? Muscle tone is equal bilaterally. No joint tenderness. Extremities: No edema or joint effusions. No cyanosis or clubbing. Skin:? Pale,? Warm to touch,dry and intact without rashes, ulcerations or petechiae.? Neuro:? Alert and orientated x3,? sensation to touch intact in all extremities. able to wiggle his toes on the R only. Left side strength is normal. R face is hypersensitive per patient. See NIHSS scale below. Psych:? Patient has a well-kept appearance, appropriate affect, mental status attitude thought context and judgment are appropriate for situation Objective ECG Impression: NSR. Early repolarization in V2 only, TWI in aVl only. Non-specific findings. Labs Result Diagrams: 08/24/21 07:53 08/24/21 07:53 Labs: Laboratory Results - last 24 hr 08/24/21 08/24/21 08/24/21 07:53 07:53 07:53 WBC 8.6 RBC 5.08 Hgb 15.2 Hct 45.2 MCV 88.8 MCH 29.9 MCHC 33.6 RDW 13.7 Plt Count 153 Neut % (Auto) 64.5 Lymph % (Auto) 23.2 L [place] % (Auto) 8.1 Eos % (Auto) 3.4 Baso % (Auto) 0.8 Neut # (Auto) 5500 Lymph # (Auto) 2000 [place] # (Auto) 700 Eos # (Auto) 300 Baso # (Auto) 100 PT 12.0 INR 1.1 APTT 31 Sodium 133 L Potassium 4.4 Chloride 101 Carbon Dioxide 28 BUN 17 Creatinine 0.91 Estimated GFR > 60.0 BUN/Creatinine Ratio 18.7 Glucose 253 H Calcium 8.9 Total Bilirubin 0.7 AST 42 ALT 42 Alkaline Phosphatase 60 Total Creatine Kinase 102 CK-MB (CK-2) 2.39 H CK-MB (CK-2) Rel Index 2.3 Troponin I 0.061 H Total Protein 7.2 Albumin 4.0 Globulin 3.2 Albumin/Globulin Ratio 1.3 U Opiates 300ng/mL cut Ur Oxycodone Screen Urine Methadone Screen Ur Barbiturates Screen U Tricyclic Antidepress Ur Phencyclidine Scrn Ur Amphetamines Screen U Methamphetamines Scrn Ur MDMA Scrn (Ecstasy) U Benzodiazepines Scrn Urine Cocaine Screen U Marijuana (THC) Screen Ethyl Alcohol < 10 SARS-CoV-2 (PCR) 08/24/21 08/24/21 09:39 09:47 WBC RBC Hgb Hct MCV MCH MCHC RDW Plt Count Neut % (Auto) Lymph % (Auto) [place] % (Auto) Eos % (Auto) Baso % (Auto) Neut # (Auto) Lymph # (Auto) [place] # (Auto) Eos # (Auto) Baso # (Auto) PT INR APTT Sodium Potassium Chloride Carbon Dioxide BUN Creatinine Estimated GFR BUN/Creatinine Ratio Glucose Calcium Total Bilirubin AST ALT Alkaline Phosphatase Total Creatine Kinase CK-MB (CK-2) CK-MB (CK-2) Rel Index Troponin I Total Protein Albumin Globulin Albumin/Globulin Ratio U Opiates 300ng/mL cut Negative Ur Oxycodone Screen Negative Urine Methadone Screen Negative Ur Barbiturates Screen Negative U Tricyclic Antidepress Negative Ur Phencyclidine Scrn Negative Ur Amphetamines Screen Negative U Methamphetamines Scrn Negative Ur MDMA Scrn (Ecstasy) Negative U Benzodiazepines Scrn Negative Urine Cocaine Screen Negative U Marijuana (THC) Screen Negative Ethyl Alcohol SARS-CoV-2 (PCR) Negative Assessment & Plan Assessment & Plan narrative: 1. CVA - PT/OT/Speech ordered - obtain MRI, CT imaging without acute abnormalities. carotids appear clean. - continue asa 81 mg daily, plavix not recommended given NIHSS >5. - start high intensity statin - telemetery monitoring to look for afib - TTE ordered. 2. HTN - allow permissive HTN, prn labetalol. Likely will need to start oral antihypertensives tomorrow. 3. DM - check A1c, sliding scale for now. 4. myocardial injury - EKG with non-specific ST changes, repeat without change. will follow troponin until downtrending. Code: DNR, surrogate Arcelia araujo Dispo: Admit to inpatient, acute rehab likely. I have utilized all available immediate resources to obtain, update, or review the patient's current medications. COVID-19 COVID-19 status: Negative Time Spent With Patient Critical Care time: I spent a total of [] minutes of critical care time on this patient's care today; this time is exclusive of procedural time. Scores NIHSS Level of Conciousness: Alert, keenly responsive Ask month/age: Answers both questions correctly. Open/close eyes, close hand: Performs both tasks correctly Best gaze horizontal: Normal Visual mulligan: No visual loss Facial palsy: Minor paralysis, flattened nasolabial fold, asymmetry on smiling Left arm drift: No drift for full 10 sec Right arm drift: No movement Left leg drift: No drift for full 5 sec Right leg drift: No effort against gravity Limb ataxia: Absent Sensory on face/arms/legs: Normal, no sensory loss Best language: Mild to moderate, slurs some words Dysarthria: Mild to mod,some slurring Extinction or inattention: No abnormality Total NIH Stroke scale score: 10 Quality Stroke Contraindication Not Initiating IV-Tpa: Not indicated Onset of Symptoms Date: 08/24/21 Onset of Symptoms Time: 00:00 Symptom Onset Unknown: Yes (last known normal midnight.) MIPS - Admit I confirm the patient?s Advance Care Plan is present, Code status is documented, Surrogate decision maker is in patient?s record [If Yes, STOP here]: Yes
--- NOTE | 2021-08-24 11:11 | DI.ECHO.S_ITS ---
[place] +---------+ [facility] +---------+ : : [address] : : : : [id number] : : : : Phone: [phone]+ Echocardiogram Report + + :Name: JASON CAMPOS Study Date: 08/24/2021 Height: 71 in : :[facility] ReadingLocation: Weight: 279 lb : : Gender: Male BSA: 2.4 m2 : :: 1970 Age: 50 yrs BP: 174/82 mmHg: :Reason For Study: CVA : :Ordering Physician: TYSHWAN, : :JOVANI HOSKINS Performed By: Rebecca Kaye : :Referring: JOVANI VILLAGRAN : + + Interpretation Summary Normal sinus rhythm. Normal LV size; mild concentric LVH; normal wall motion and LV systolic function. EF is 55-60%. Stage I diastolic dysfunction. Normal chamber sizes. Aortic sclerosis without stenosis. Otherwise no significant valvular abnormalities. No prior study available for comparison. Procedure: A two-dimensional transthoracic echocardiogram with color flow and Doppler was performed. The study quality was technically adequate. There is no prior echocardiogram noted for this patient. A saline contrast injection was performed to assess for cardiac shunting. The patient was in sinus rhythm with heart rates between 59-72 bpm during the exam. Left Ventricle: The left ventricle is normal in size. There is mild concentric left ventricular hypertrophy. The ejection fraction is estimated to be 55-60%. Right Ventricle: The right ventricle is normal in size and function. Atria: The left atrial size is normal. Right atrial size is normal. There is no Doppler evidence for an interatrial shunt. Injection of contrast documented no interatrial shunt. Mitral Valve: The mitral valve is normal in structure and function. There is trace mitral regurgitation. Aortic Valve: The aortic valve is not well visualized. There is no aortic valve stenosis. No aortic regurgitation is present. Tricuspid Valve: The tricuspid valve is normal in structure and function. There is trace tricuspid regurgitation. Pulmonic Valve: The pulmonic valve is not well visualized. There is no pulmonic valvular regurgitation. Great Vessels: The aortic root is normal size. The ascending aorta is normal in size. The IVC is dilated (diameter is greater than 2.1 cm) yet it collapses greater than 50% with a sniff. This suggests a right atrial pressure of 8 mm Hg. Pericardium/ Pleura There is no pericardial effusion. There is no pleural effusion. MMode/2D Measurements & Calculations LVIDd: 5.3 cm LVOT diam: 2.0 cm LVIDs: 3.9 cm Ao root diam: 3.6 cm FS: 26.8 % asc Aorta Diam: 3.4 cm IVSd: 1.4 cm Ao Arch Diam (Prox Trans): 3.1 cm LVPWd: 1.1 cm LV vick. diameter/BSA (cm/m^2): 2.2 LV sys. diameter/BSA (cm/m^2): 1.6 LA A2 area: 20.3 cm2 RA long axis: 4.7 cm LA A4 area: 21.8 cm2 RA area: 15.6 cm2 LA length (vol): 6.0 cm RA vol: 44.2 ml LA vol: 62.6 ml RA : 18.2 ml/m2 LA vol index: 25.8 ml/m2 IVC diam: 1.9 cm RVD1 (basal): 3.5 cm TAPSE: 2.1 cm Doppler Measurements & Calculations Ao V2 max: 137.5 cm/sec LVOT Max Tim: 103.1 cm/sec Ao V2 mean: 92.1 cm/sec LV V1 max P.2 mmHg Ao max P.6 mmHg LV V1 VTI: 20.8 cm Ao mean P.0 mmHg ROSANNA(I,D): 2.5 cm2 Ao V2 VTI: 26.6 cm ROSANNA(V,D): 2.4 cm2 sev ratio: 0.78 ROSANNA indexed to BSA (cm^2/m^2): 1.0 MV E max tim: 60.5 cm/sec PA V2 max: 117.6 cm/sec MV A max tim: 92.4 cm/sec PA V2 mean: 74.8 cm/sec MV E/A: 0.65 PA mean P.6 mmHg Med Peak E' Tim: 4.6 cm/sec PA pr(Accel): 31.0 mmHg E/E' med: 13.3 Lat Peak E' Tim: 7.3 cm/sec E/E' lat: 8.3 E/e' average: 10.8 MV dec time: 0.25 sec SV([facility]): 67.5 ml Electronically signed by: Jessica Ma M.D. on Reading Physician:08/24/2021 07:25 PM
[2021-08-24] MEDS: INSULIN LISPRO 100 UNIT/ML 3ML VIAL SUBCUT ×3 (12:14→21:25)
--- NOTE | 2021-08-24 12:21 | PC.ADMIT ---
[facility] Admission Note: Pt arrived via gurney from ED, slide mat used to get pt to bed, connected to monitoring equipment, oriented to room and call light system. Able to make needs known, Dr Marrero at bedside. Bed low and locked, call light within reach, will continue to monitor. The patient,Edgardo Teague,50 y/o, was given written information regarding hospital policies, unit procedures and contact persons. Patient's smoking status: Former smoker. Vital Signs - 8 hr 08/24/21 07:41 08/24/21 07:53 08/24/21 07:54 Temperature 98.5 F Pulse Rate 76 80 78 Respiratory Rate 18 23 22 Blood Pressure 197/112 H 197/112 H Pulse Oximetry 96 97 96 08/24/21 07:56 08/24/21 07:58 08/24/21 08:00 Temperature Pulse Rate 76 73 75 Respiratory Rate 21 23 22 Blood Pressure 215/107 H 230/106 H Pulse Oximetry 94 95 95 08/24/21 08:01 08/24/21 08:14 08/24/21 08:20 Temperature Pulse Rate 80 72 73 Respiratory Rate 18 20 20 Blood Pressure 238/138 H 212/97 H 212/103 H Pulse Oximetry 95 95 96 08/24/21 08:30 08/24/21 08:31 08/24/21 08:41 Temperature Pulse Rate 78 73 79 Respiratory Rate 21 21 21 Blood Pressure 199/91 H 194/108 H Pulse Oximetry 95 95 95 08/24/21 08:51 08/24/21 09:00 08/24/21 09:23 Temperature Pulse Rate 74 74 71 Respiratory Rate 21 21 22 Blood Pressure 209/91 H Pulse Oximetry 96 96 96 08/24/21 09:24 08/24/21 09:30 08/24/21 09:40 Temperature Pulse Rate 71 69 70 Respiratory Rate 17 19 20 Blood Pressure 192/99 H 204/102 H 184/99 H Pulse Oximetry 93 94 95 08/24/21 10:10 Temperature 98.9 F Pulse Rate 68 Respiratory Rate 22 Blood Pressure 174/82 H Pulse Oximetry 97
--- NOTE | 2021-08-24 13:55 | PC.NURSE ---
code stroke activated with ems call patrol captain
--- NOTE | 2021-08-24 14:23 | OT.IPNOTE ---
Pt just finished seeing BUSINESS ANALYTICS SPECIALIST and now to have lunch. Therefore to see pt tomorrow for OT richard.
--- NOTE | 2021-08-24 14:30 | ST.IPCSEOM ---
Visit Care Team Role Provider Type Miladys Goode DO Emergency Provider Physician Referring Provider Specialty: Emergency Medicine Address: [address] [place] [address], [id number] Email: [email or web address] Giovany Marrero DO Admit Provider Physician Attending Provider Specialty: Internal Medicine Address: [address] [place] [address], [id number] Email: [email or web address] Current Diagnoses Cerebral infarction, unspecified (08/24/21) Past Medical History (Last Updated 08/24/21 @ 10:54 by Giovany Marrero DO) CVA (cerebral vascular accident) (Medical) Diabetes mellitus (Medical) No significant past surgical history (Medical) Speech-Language Pathology Swallow Evaluation [facility] Clinical Swallow Evaluation Start: 08/24/21 14:28 Freq: Status: Active Protocol: Document 08/24/21 14:28 ZEV (Rec: 08/24/21 14:31 ZS [id number]) Clinical Swallow Evaluation Session Time Visit Start Time 13:40 Visit Stop Time 14:20 Total Visit Minutes 40 Visit Information Visit Number Initial Evaluation Setting Assessment Location Acute Care Visit Type Note Type Initial evaluation Next Note Type Next Note Type Treatment Note Patient Information Identification Type Name,Wristband History This is a 50-year-old male with a past medical history of diabetes and prior small stroke according to him, has not seen a primary care doctor in many years. He woke up this morning with an inability to move his right side, as well as a facial droop and slurred speech. His last known normal was when he went to sleep last night which was at midnight. He denies any numbness on his right side, and the right side of his face is actually slightly hypersensitive currently. He denies any recent fever, chills, chest pain. He has had intermittent palpitations, but mainly with exertion. He denies any shortness of breath, abdominal pain, nausea , vomiting, dysuria, urinary frequency, lower extremity edema. CT head without contrast was unremarkable, as was a CT angiogram of the head and neck , with no significant stenosis . MRI indicated an acute versus early subacute left pontine infarct. Reported by Patient Current Diet Nothing by mouth Baseline Feeding Method Independent in self-feeding Objective Assessment Mental Status Alert,Responsive,Cooperative Oral Integrity WFL Dentition Missing teeth Lip Function Mild impairment Observation of Lips at Rest Symmetrical Pucker Within normal limits Lip Retraction Right sided weakness/Drooping Alternating Pucker/Lip Retraction Within normal limits Tongue Function Within normal limits Observations of Tongue at Rest Within normal limits Tongue Protrusion Within normal limits Tongue Retraction Within normal limits Tongue Lateralization Within normal limits Jaw Function Within normal limits Observations of Jaw at Rest Within normal limits Jaw Opening Within normal limits Jaw Closing Within normal limits Hard/Soft Palate Function Within normal limits Observations of Hard/Soft Palate Within normal limits Comment Pt exhibited mild right labial weakness when smiling, but otherwise had symmetrical facial features at rest and in motion. Uvula had mass on left side, but appeared to move symmetrically. Upper dentition and lower front teeth missing, but pt reported this does not impact his ability to chew. Strength and ROM of oral mechanism was WFL for the purposes of swallowing . Speech was slurred, which is likely due to labial weakness . Daughters reported significant improvement in speech intelligibility as well as facial droop over the course of the day. Food and Liquid Trials Position During Assessment Upright (90 degrees),In bed Liquids Trialed Ice chips,Thin Solids Trialed Puree,Dysphagia Mechanical, Dysphagia Advanced,Mechanical Soft,Regular Administration Type Tea spoon,Cup single sip,Straw ,Self-feeding,Needs some assistance Oral Impairment Within normal limits Oral Phase Comments No anterior loss of bolus observed. No oral residue observed across all trials. Pt required assistance with holding food container while he took bites as he is not able to move his right arm at this time. Pharyngeal Impairment Within normal limits Pharyngeal Phase Comments Cough observed following trial of thin liquids, though pt was laughing at something his daughter said at the time. Additional cough observed following thin liquid trial, though cough was delayed and unlikely related to swallow. No overt signs or symptoms of aspiration observed for solid trials. Fatigue/Endurance Endurance WNL Comment Pt reported no fatigue while eating and no signs of fatigue were observed, though limited trials were completed. Results Pt exhibits swallow WNL with coughing observed when he is distracted. Recommend limiting distractions in the room while eating. Provided pt education regarding positioning, swallow safety, and strategies for limiting distractions. Findings Swallowing Function Within normal limits Severity of Swallow Impairment Within normal limits Contributing Factors to Swallow Reduced alertness or attention Impairment Prognosis Good Based on Cognitive status,Family support,Age,Duration of symptoms/severity Comment Pt exhibits swallow WNL with coughing observed when he is distracted. Recommend limiting distractions in the room while eating. Provided pt education regarding positioning, swallow safety, and strategies for limiting distractions. Recommend follow -up to monitor speech sound production and for swallow saftey with diet change. Impact on Safety and Functioning No limitations Recommendations Instrumental Assessment No Frequency Follow-up x1 Recommended Solids Regular Recommended Liquids Thin Safety Precautions/Swallowing Feed only when alert,Reduce Recommendations distractions,Remain upright ( 90 degrees) during all oral intake,Upright position at least 30 minutes after meals, Small bites and sips when eating Medication Recommendations As Tolerated Discharge Recommendations Home Education Patient/Caregiver Education Described results of evaluation,Patient expressed understanding of evaluation, Patient expressed agreement with goals & treatment plans, Family/caregivers expressed understanding of evaluation, Family/caregivers expressed agreement with goals & treatment plans,Patient expressed understanding of safety precautions,Patient expressed understanding of feeding recommendations,Family /caregivers expressed understanding of safety precautions,Family/caregivers expressed understanding of feeding recommendations Goals Short-term Goals Follow-up on swallow safety with upgraded diet. Follow-up on speech sound production to monitor improvement and provide strategies as necessary.
--- NOTE | 2021-08-24 15:05 | PT.IIE ---
Addendum entered and electronically signed by Nancy Ware PT 08/24/21 16:42: Talked with Dr. Marrero prior to PT eval. pt with increase troponin of .061 but doctor cleared pt to do PT eval. Original Note: Current Diagnoses Cerebral infarction, unspecified (08/24/21) Medical History (Last Updated 08/24/21 @ 10:54 by Giovany Marrero, ) CVA (cerebral vascular accident) Diabetes mellitus Physical Therapy Inpatient Evaluation/Re-Eval M1 PT/OT-IP Prior Functional Status Start: 08/24/21 16:20 Freq: NEEDED Status: Active Protocol: Document 08/24/21 15:05 AB (Rec: 08/24/21 16:41 AB [id number]) Medical Review Prior Functional Status Medical History Reviewed Yes Communication able to answer questions but with unclear speech/ weak voice but able to correct when ask to repeat answers Mobility and Gait pt stated that he is independent with all mobilities and ambulation wtihout AD Social History Household Members children Living Arrangements House Number of Floors (Floors) Two Floors Number of Stairs To Enter/Railing? 3 steps to enter with R rail ascending; has a ramp to enter on another side of the house 13 steps B rails to get to bedroom level Home Environment High Toilet,Tub/Shower Home Equipment Hand Held Shower,Grab Bars In Shower Additional Social History Comment pt lives with her daughter M2 PT-IP Current Condition Start: 08/24/21 16:20 Freq: NEEDED Status: Active Protocol: Document 08/24/21 15:05 AB (Rec: 08/24/21 16:41 AB [email or web address]) Physical Therapy Current Condition Current Condition Evaluation Date 08/24/21 Treatment Diagnosis L CVA R rodolfo; difficulty in walking Onset Date 08/24/21 M3 PT-IP Subjective Start: 08/24/21 16:20 Freq: NEEDED Status: Active Protocol: Document 08/24/21 15:05 AB (Rec: 08/24/21 16:41 AB [email or web address]) Subjective Physical Therapy Visit Type Type Initial Evaluation Visit Start Time 15:05 Visit Stop Time 15:35 Total Visit Minutes 30 Number of WELDER FITTER GAS Visits 0 Physical Therapy Visit Comments Patient Comments agreeable to do PT Therapy Pain Assessment Pain When Pain Assessed At Rest Location Head Intensity 4 Scale Used has a headache M4 PT-IP Mobility and Gait Start: 08/24/21 16:20 Freq: NEEDED Status: Active Protocol: Document 08/24/21 15:05 AB (Rec: 08/24/21 16:41 AB [id number]) PT-Bed Mobility Assessment Supine to Sit Supine to Sit Maximum Assistance,2 Person Assistance,Head of Bed Elevated,Bedrails Scooting Scooting to Edge of Bed Maximum Assistance PT-Transfer Assessment Sit to and From Stand Sit to and from Stand Maximum Assistance,2 Person Assistance,Use of Upper Extremities Comments Mobility Comments Nurse in room to assist. pt completed supine to sit with HOB elevated max A x2 and max cues. required assist to move RLE to EOB. able to sit on EOB with initial CGA but able to maintain balance SBA after positioning. completed sit to stand x 3 reps max A x 2 and max cues. pt unable to stand upright with increase lateral pushing towards R. pt unable to use RUE on FWW. pt required assist to block BLE during sit to stand for steadiness. pt stated that he wants to sit on EOB. Nurse informed daughte to sit next close to pt. Call light and table placed within reach. Left pt with daughter and nurse in room. Gait Assessment Comments Gait Comments unable PT-Balance Assessment Sitting Balance and Reactions Static Sitting Balance Ability Fair Dynamic Sitting Balance Ability Poor Standing Balance and Reactions Static Standing Balance Ability Poor Dynamic Standing Balance Ability Poor Device Used FWW M5 PT-IP Objective Assessments Start: 08/24/21 16:20 Freq: NEEDED Status: Active Protocol: Document 08/24/21 15:05 AB (Rec: 08/24/21 16:41 AB [id number]) Orientation Orientation/Cognition Level of Alertness Alert Orientation Name,Place,Situation Safety Awareness Decreased Safety Awareness Gross Range of Motion Lower Extremity ROM Impairments Pt with extensor tone on RLE affecting PROM in flexion Strength Lower Extremity Strength Assessment Right Impaired Comments Strength Comments R LE hip/knee flexion: 1/5 RLE hip/knee extension: 2-/5 R ankle DF/PF: 0/5 Sensation Assessment Sensation Gross Sensation WNL Muscle Tone Muscle Tone WNL No Muscle Tone Location Right Lower Extremity Type of Tone Extensor Severity of Tone Moderate M6 PT-IP Treatment Start: 08/24/21 16:20 Freq: NEEDED Status: Active Protocol: Document 08/24/21 15:05 AB (Rec: 08/24/21 16:41 AB [email or web address]) Physical Therapy Treatment Education Education Provided Safety M7 PT-IP Assessment and Plan Start: 08/24/21 16:20 Freq: NEEDED Status: Active Protocol: Document 08/24/21 15:05 AB (Rec: 08/24/21 16:41 [email or web address]) PT Summary Assessment and Plan Potential Rehabilitation Potential Fair Status of Condition at Evaluation Evolving Summary Impairments Pain,ROM,Strength,Balance, Coordination,Sensation,Tone, Cognition,Bed Mobility, Transfers,Gait,Activity Tolerance Assessment Summary pt L CVA with R sided weakness and requiring max A x 2 with mobility but unable to stand upright to be able to transfer using AD. Recommending mechanical lift transfer with nurses at this time. pt will require further PT to improve strength and mobility: acute rehab vs SNF . pt is motivated and wants to go home but needs to be more functional than current level. will continue to assess progress. Goals Bed Mobility Goal Minimal Assistance Transfer Goal Minimal Assistance Gait Goal Minimal Assistance,Rodolfo Walker Gait Distance 25 Other Goals improve bed mobility SBA, transfers using hemiwalker to CGA and ambulation using hemiwalker 50 ft CGA Days to Meet Goals 10 Frequency of Treatment Frequency Of Treatment Once a Day Treatment Plan Physical Therapy Treatment Plan Bed Mobility Training,Transfer Training,Gait Training, Therapeutic Exercise,Balance Retraining,Discharge Planning, Hot or Cold Pack,Neuromuscular Re-ed,Coordination Retraining ,Manual Therapy Recommendations To Nursing Amount of Assist Needed Mechanical Lift Discharge Recommendations PT Discharge Recommendations SNF Rehab,Acute Rehab,SNF vs Acute Rehab Transportation Needs at Discharge Wheelchair/Cabulance
[2021-08-24] MEDS: ACETAMINOPHEN 325 MG TABLET 650 MG PO (18:20)
--- NOTE | 2021-08-24 20:08 | DI.CT.S_ITS ---
PROCEDURE: CT HEAD/BRAIN WO CON INDICATIONS: worsneing neurologic symptoms TECHNIQUE: Noncontrast 4.5 mm thick angled axial sections acquired from the foramen magnum to the vertex, with coronal and sagittal reformats. For radiation dose reduction, the following was used: automated exposure control, adjustment of mA and/or kV according to patient size. COMPARISON: [facility], MR, MR HEAD/BRAIN WO CON, 08/24/2021, 10:46. [facility], CT, CT HEAD WITHOUT CONTRAST, 12/06/2018, 21:27. [facility], CT, CT STROKE, 08/24/2021, 7:47. FINDINGS: Image quality: Excellent. CSF spaces: Basal cisterns are patent. No extra-axial fluid collections. The ventricles are symmetric in size and shape. Brain: Subtle hypodensity is seen in the left amari in the region of the recent infarcts seen on MR brain from earlier the same day. No mass effect or hemorrhagic conversion. There is cerebral volume loss for age, with resultant ventricular and sulcal prominence. There are baak-dw-dgohksfg periventricular and deep white matter chronic small vessel ischemic changes. There is intracranial internal carotid artery atherosclerosis. Skull and face: Calvarium and visualized facial bones appear intact, without suspicious lesions. Sinuses: There is opacification of the bilateral maxillary sinuses. The remaining visualized paranasal sinuses demonstrate mucosal thickening and partial opacification. The mastoid air cells are clear. IMPRESSION: 1. Subtle hypodensity in the left amari is consistent with the recent infarct seen on MRI from earlier the same day. No mass effect or hemorrhagic conversion. 2. Chronic small vessel ischemic changes. Dictated by: Brent Dumont M.D. on 08/24/2021 at 20:48 Approved by: Brent Dumont M.D. on 08/24/2021 at 20:56
--- NOTE | 2021-08-24 20:08 | DI.CT.S_ITS ---
PROCEDURE: CT ANGIO HEAD AND NECK INDICATIONS: worsening neurologic symptoms, stroke earlier today TECHNIQUE: After the administration of intravenous contrast, 1 mm thick sections acquired from the aortic arch through the [place]. Post-contrast 4.5 mm thick sections then re-acquired from the foramen magnum to the vertex. 3-dimensional sxlcoqr-fzomwydkr-tapivqekxf (MIP) and/or volume rendering reformats were acquired of the central intracranial vasculature and neck separately. COMPARISON: [facility], MR, MR HEAD/BRAIN WO CON, 08/24/2021, 10:46. [facility], CT, CT HEAD/BRAIN WO CON, 08/24/2021, 20:12. [facility], CT, CT ANGIO HEAD AND NECK, 08/24/2021, 7:47. FINDINGS: Image quality: Excellent. BRAIN: CSF spaces: Ventricles are normal in size and shape. Basal cisterns are patent. No extra-axial fluid collections. Brain: No midline shift. No acute intracranial hemorrhage or mass effect. Subtle hypodensity in the left amari is consistent with known recent infarct. Scattered hypodensities in the subcortical and periventricular white matter are consistent with chronic microvascular ischemic changes. Skull and face: Calvarium and facial bones appear intact, without suspicious lesions. Orbits appear normal. Sinuses: Opacification of the maxillary wall sinuses again seen with partial opacification and mucosal thickening in the remaining visualized paranasal sinuses. The mastoid air cells are clear. HEAD CT ANGIOGRAPHY: Anterior circulation: Intracranial internal carotid arteries are normal in size and flow. The flow within the paired anterior cerebral arteries is normal and symmetric. The flow within the middle cerebral arteries is normal and symmetric. The anterior communicating artery is seen. No aneurysms are seen. 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 Occlusion of the right vertebral artery distal to the PICA takeoff is considered less likely. The left vertebral artery demonstrates multifocal atherosclerotic plaque resulting in mild stenoses. The basilar artery is patent. Flow within the posterior cerebral arteries is normal and symmetric. No aneurysms are seen. NECK CT ANGIOGRAPHY: Carotid system: Mild aortic atherosclerotic calcifications. The great vessels demonstrate a conventional anatomy as they arise from the aortic arch. The origins of the common carotid arteries appear patent. The common carotid arteries demonstrate normal caliber and courses. Calcified atherosclerotic plaque is seen at the bilateral carotid bifurcations resulting in less than 50% stenosis of the proximal internal carotid arteries bilaterally. The more superior internal carotid arteries demonstrate normal calibers and courses. Posterior circulation: The origins of the vertebral arteries both appear widely patent. Left vertebral artery is dominant. The more superior extracranial portions of both vertebral arteries also demonstrate normal courses and calibers. Soft tissues: Visualized neck soft tissues demonstrate no suspicious abnormalities. Bones: No suspicious bony lesions. Mild degenerative changes are seen in the spine. IMPRESSION: 1. Subtle hypodensity in the left amari is consistent with the known recent infarcts seen on MRI from earlier the same day. No mass effect or hemorrhagic conversion. 2. No acute large vessel occlusion in the head or neck. No hemodynamically significant stenosis. No significant change when compared to the exam from earlier the same day. Any quantitative measurements of stenosis were performed using NASCET criteria. Dictated by: Brent Dumont M.D. on 08/24/2021 at 21:00 Approved by: Brent Dumont M.D. on 08/24/2021 at 21:10
--- NOTE | 2021-08-24 20:10 | DI.RAD.S_ITS ---
PROCEDURE: XR CHEST 1V INDICATIONS: sob TECHNIQUE: One view of the chest was acquired. COMPARISON: [facility], CR, XR CHEST 1V, 08/24/2021, 9:33. FINDINGS: Surgical changes and devices: None. Lungs and pleura: Low lung volumes again noted bilaterally. No acute consolidation. No pleural effusions or pneumothorax. Mediastinum: Mediastinal contours appear normal. Heart size is normal. Bones and chest wall: No suspicious bony lesions. Overlying soft tissues appear unremarkable. IMPRESSION: No acute cardiopulmonary abnormality. Dictated by: Brent Dumont M.D. on 08/24/2021 at 21:16 Approved by: Brent Dumont M.D. on 08/24/2021 at 21:17
[2021-08-24 20:28] LABS: Hematocrit 46.6 % (41-53); Hemoglobin 16.1 g/dL (13.5-17.5); Mean Corpuscular HGB Conc 34.5 % (30-36); Mean Corpuscular Hemoglobin 30.6 PG (26-34); Mean Corpuscular Volume 88.8 fL (80-100); Platelet Count 162 X10^3/uL (150-400); Red Blood Cell Count 5.25 X10^6/uL (4.5-5.9); White Blood Cell Count 10.8 X10^3/uL (4.5-11.0)
[2021-08-24 20:34] LABS: BUN Creatinine Ratio 18.2 (6-22); Blood Urea Nitrogen 20 mg/dL (9-20); Calcium 9.8 mg/dL (8.4-10.2); Carbon Dioxide 29 mmol/L (22-32); Chloride 105 mmol/L (98-107); Estimated Glomerular Filt Rate > 60.0 mL/min (>60); Glucose 242 mg/dL (70-100); HEMOLYSIS 25 (0-50); Potassium 4.3 mmol/L (3.4-5.1); Sodium 137 mmol/L (137-145)
[2021-08-24 20:43] LABS: NT-proBNP (BNP-Adult 18+) 647 pg/mL (<125)
[2021-08-24 20:46] LABS: Troponin I 0.057 ng/mL (0.01-0.034)
--- NOTE | 2021-08-24 21:12 | PM.EVENT ---
Event Note Event Note (Rapid Response, Code, or fall): CODE stroke called at 1955. Patient had presented earlier with a stroke. Per notes was outside the window for TPA, and CT angio head/neck showed no large vessel disease. MRI showed pontine stroke. NIH documented of 10, patient with documented right hemiparesis, and expressive aphasia. Throughut the day had some speech improvement, but then worsened tonight leading to code stroke called. NIH documented at 11, with patient having complete R sided inability to move. Continued to note having expressive aphasia. No visual changes, no left sided weakness. CT head showed no hemorrhage. Discussed with telestroke neurologist who stated there is no indication for further treatment aside from what is currently being treated with antiplatelet and statin. Patient is notably hypertensive on exam with 221/112, and repeat showing 214 systolic. Continue with plan to treat blood pressure for >220/120 with goal no lower than systolic 190. Labetalol already ordered. Patient was also mildly short of breath. Repeat troponin lower at 0.059. Chest xray with no acute change per my read, await final read by radiology. No fever. No productive sputum.
[2021-08-24] MEDS: ATORVASTATIN 20 MG TABLET 40 MG PO (21:25)
--- NOTE | 2021-08-24 22:13 | PC.NURSE ---
2039- BUILDINGS PAINTER pulled me out of room 228 stating that my patient in 227 was having a issue. Patient was experiencing increased stroke like symptoms. Code Stroke initiated via overhead page. ER MD Dr. Phipps and Dr. Mckenzie responded. NIH completed by MD Dr. Mckenzie score 11. NIH done in Emergency was score 10. Repeat labs, imaging, and Vitals see charting. BG was 206. BP was elevated but not above paramaters for intervention. Monitoring closely.
[2021-08-25] VITALS (52 sets, daily range): BP systolic 164–231; BP diastolic 76–123; PULSE 60–83; RESP 5–28; TEMP 36.6–36.8; O2SAT 92–99
[2021-08-25 05:21] LABS: Add Manual Diff / Slide Review NO; Basophils Absolute Auto 100 /uL (0-100); Basophils Percent Auto 0.8 % (0-2); Eosinophils Absolute Auto 400 /uL (0-450); Eosinophils Percent Auto 5.1 % (2-4); Hematocrit 45.1 % (41-53); Hemoglobin 15.3 g/dL (13.5-17.5); Lymphocytes Absolute Auto 2700 /uL (1100-4500); Lymphocytes Percent Auto 32.3 % (25-40); Mean Corpuscular Hemoglobin 30.4 PG (26-34); Mean Corpuscular Volume 89.4 fL (80-100); Monocytes Absolute Auto 900 /uL (0-900); Monocytes Percent Auto 10.2 % (3-14); Neutrophils Absolute Auto 4300 /uL (1500-7000); Neutrophils Percent Auto 51.6 % (50-75); Platelet Count 149 X10^3/uL (150-400); Red Blood Cell Count 5.04 X10^6/uL (4.5-5.9); Red Cell Distribution Width 14.1 % (11.6-14.8); White Blood Cell Count 8.4 X10^3/uL (4.5-11.0)
[2021-08-25 05:28] LABS: BUN Creatinine Ratio 21.4 (6-22); Blood Urea Nitrogen 21 mg/dL (9-20); Calcium 9.1 mg/dL (8.4-10.2); Carbon Dioxide 29 mmol/L (22-32); Chloride 105 mmol/L (98-107); Cholesterol 224 mg/dL (140-199); Estimated Glomerular Filt Rate > 60.0 mL/min (>60); Glucose 238 mg/dL (70-100); HDL Cholesterol 35 mg/dL (40-60); HEMOLYSIS < 15 (0-50); LDL Cholesterol Calculated 144 mg/dL (<100); Magnesium 2.2 mg/dL (1.6-2.3); Potassium 4.2 mmol/L (3.4-5.1); Sodium 138 mmol/L (137-145); Triglycerides 227 mg/dL (35-150)
[2021-08-25 06:09] LABS: TSH w/ Reflex to FT4 2.01 uIU/mL (0.47-4.68)
[2021-08-25 06:34] LABS: Hemoglobin A1C% w Est Avg Glu 9.4 % (4.0-6.0)
--- NOTE | 2021-08-25 07:29 | PC.NURSE ---
Shift Note: Patient was alert and oriented, with right side paralysis, with right side facial droop and slurred speech, NIH - 13. Afebrile, vital signs within acceptable limits, SBP remains >190. Patient denies any pain/discomfort. O2 sat >92% at room air. Will continue to monitor.
[2021-08-25] MEDS: INSULIN LISPRO 100 UNIT/ML 3ML VIAL SUBCUT ×4 (07:54→21:12)
[2021-08-25] MEDS: ACETAMINOPHEN 325 MG TABLET 650 MG PO (08:11)
[2021-08-25] MEDS: ASPIRIN EC 81 MG TABLET PO (08:12)
[2021-08-25] MEDS: ENOXAPARIN 40 MG/0.4 ML SYRINGE SUBCUT (08:12)
[2021-08-25] MEDS: INSULIN GLARGINE 100 UNIT/ML 3ML PEN 10 UNIT SUBCUT (09:50)
--- NOTE | 2021-08-25 11:40 | OT.IP.EVAL ---
Current Diagnoses Cerebral infarction, unspecified (08/24/21) Past Medical History (Last Updated 08/24/21 @ 10:54 by Giovany Marrero DO) CVA (cerebral vascular accident) Diabetes mellitus No significant past surgical history Surgical History (Last Updated 08/24/21 @ 10:54 by Giovany Marrero DO) No significant past surgical history Occupational Therapy Inpatient Evaluation/Re-Eval M1 PT/OT-IP Prior Functional Status Start: 08/24/21 16:20 Freq: NEEDED Status: Active Protocol: Document 08/25/21 11:44 [facility] (Rec: 08/25/21 12:08 [facility] [id number]) Medical Review Prior Functional Status Medical History Reviewed Yes Communication able to answer questions but with unclear speech/ weak voice but able to correct when ask to repeat answers Mobility and Gait pt stated that he is independent with all mobilities and ambulation without AD Activities of Daily Living and IADL's Completely independent with ADL, 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 Social History Household Members children Living Arrangements House Number of Floors (Floors) Two Floors Number of Stairs To Enter/Railing? 3 steps to enter with R rail ascending; has a ramp to enter on another side of the house 13 steps B rails to get to bedroom level Home Environment High Toilet,Tub/Shower Home Equipment Hand Held Shower,Grab Bars In Shower Additional Social History Comment pt lives with her daughter M2 OT-IP Current Condition Start: 08/25/21 11:44 Freq: Status: Active Protocol: Document 08/25/21 11:44 [facility] (Rec: 08/25/21 12:08 [facility] [id number]) Occupational Therapy Current Condition Current Condition Evaluation Date 08/25/21 Treatment Diagnosis CVA, right hemiplegia Diagnosis Onset Date 08/25/21 M3 OT- IP Subjective and Pain Start: 08/25/21 11:44 Freq: Status: Active Protocol: Document 08/25/21 11:44 [facility] (Rec: 08/25/21 12:08 [facility] [id number]) OT- Subjective Occupational Therapy Visit Type Type Initial Evaluation Visit Start Time 11:00 Visit Stop Time 11:40 Total Visit Minutes 40 Notes Per Hospitalist okay to work with pt as long as his BP is lower than 220/120 at this time. Occupational Therapy Visit Comments Patient Comments Pt very motivated to work with OT. Patient/Caregiver Goals TO get better. OT Pain Assessment Pain When Pain Assessed At Rest Pain Present Pain Present Denied Pain M4 OT- IP ADL's Start: 08/25/21 11:44 Freq: Status: Active Protocol: Document 08/25/21 11:44 [facility] (Rec: 08/25/21 12:08 [facility] [id number]) OT ADL-Grooming Comments OT Grooming Comments NOt at meal time. OT ADL-Oral Care Comments Oral Care Comments Pt not wanting to do at this time. OT ADL-Dressing General Eval Lower Body Dressing Ability Maximum Assistance Areas Needing Assistance Socks OT ADL-Toileting Comments OT Toileting Comments Pt not having to go at this time and has been using the urinal. OT ADL-Bathing Comments OT Bathing Comments Sponge bath more appropriate at this time. M5 OT- IP IADL's Start: 08/25/21 11:44 Freq: Status: Active Protocol: Document 08/25/21 11:44 [facility] (Rec: 08/25/21 12:08 [facility] [id number]) OT-Instrumental Activities of Daily Living Home Safety Awareness Awareness of Need for Assistance at Home Good Awareness Ability to Problem Solve Emergency Able to Problem Solve Situations Home Safety Comments Pt able to solve home safety situations with increased time . Pt states now needing increased time to think. M6 OT- IP Functional Cognition Start: 08/25/21 11:44 Freq: Status: Active Protocol: Document 08/25/21 11:44 [facility] (Rec: 08/25/21 12:08 [facility] [id number]) Cognitive Factors Limiting Selfcare Function Cognitive Ability Level of Alertness Alert Patient Orientation Name,Age,Birthday,Month,Date, Year,Day of Week,Place, Situation Attention Span Ability Capable of Focused Attention, Capable of Sustained Attention Ability to Follow Commands Able to Follow One Step Commands Cognitive Comments Cognitive Assessment Comments Pt able to follow commands appropriately. Continue to assess pt for higher level cognitive needs. OT- Vision and Hearing OT- Hearing Assessment OT- Hearing Assessment WFL OT- Vision Assessment Visual Acuity WFL Vision Assessment Comments Pt tends to have his head slightly turned to the left. Pt states has the feeling that he is leaning to the right. M7 OT- IP Mobility and Balance Start: 08/25/21 11:44 Freq: Status: Active Protocol: Document 08/25/21 11:44 [facility] (Rec: 08/25/21 12:08 [facility] [id number]) OT- Bed Mobility Assessment Supine to Sit Supine to Sit Assist Maximum Assistance Sit to Supine Sit to Supine Assist Maximum Assistance Scooting Scooting to Edge of Bed Moderate Assistance OT-Transfer Assessment Comments Mobility Comments With the HOB up with assist to more his RLE and RUE with MAX A, pt able to get to the edge of the bed. Pt after set-up of right hand into weight bearing, pt able to sit with SBA at the edge of the bed with fair+ balance. BP supine 203/118 and nursing states okay to work with the pt if BP lower than 220/120. BP sitting 224/102 and then nursing states best to stop working with the pt. Pt needing MAX A to help get his RUE and RLE back into bed. Pt able to assist to scoot up to the head of the bed with assist to RUE/RLE positioning and MAX AX 1 OT- Balance Assessment Sitting Balance and Reactions Static Sitting Balance Ability Fair Dynamic Sitting Balance Ability Poor M8 OT- IP Objective Assessments Start: 08/25/21 11:44 Freq: Status: Active Protocol: Document 08/25/21 11:44 [facility] (Rec: 08/25/21 12:08 [facility] [id number]) OT Gross Range of Motion Upper Extremity Range of Motion Assessment Bilaterally Impaired OT Strength Upper Extremity Strength Assessment Right Impaired Shoulder 2- Elbow 1 Forearm 0 Wrist 0 Hand 0 Comments Strength Comments Noted partial-trace movement in right shoulder especially when the weight of his arm is supported. OT- Coordination Assessment Upper Extremity Finger to Nose Test Right UE Impaired OT-Muscle Tone Assessment Muscle Tone WNL No Comments Muscle Tone Comments Pt when waned has flexor tone in RUE. OT Sensation Assessment Comments Summary Comments Intact for light touch BUE. M9 OT- IP Assessment and Plan Start: 08/25/21 11:44 Freq: Status: Active Protocol: Document 08/25/21 11:44 [facility] (Rec: 08/25/21 12:08 [facility] [id number]) OT Summary Assessment and Plan Potential Rehabilitation Potential Excellent Analytic Complexity at Evaluation High Summary OT Impairments Strength,Balance,Coordination, Tone,Functional Mobility,Self- Feeding,Grooming,Dressing, Toileting,Bathing,Toilet Transfers,Shower Transfers, Activity Tolerance Progress Towards Goals Progressing Toward Goals,Slow Progress due to Medical Issues Assessment Summary Pt MOD complexity and here due to CVA. Pt now has partial/ trace movement in his right shoulder and no movement in his right hand at this time. Pt is highly motivated, cooperative and able weight bear through his right hand after set-up next to him while seated on the edge of the bed . Pt having high BP therefore limited OT eval today. Pt would highly benefit from acute rehab. Goals Self-Feeding Goal Independent Grooming Goal Independent Dressing Goal Independent Toileting Goal Independent Bathing Goal Independent Toilet Transfer Goal Independent Shower Transfer Goal Independent OT-Other Goals Pt to incorporate use of RUE during ADL and mobility needs. All goals above with consideration of pt's use of RUE for needs, pt is right hand dominant. Days to Meet Goals 60 Frequency of Treatment Frequency Of Treatment Once a Day Treatment Plan OT Treatment Plan ADL Training,Functional Mobility,Neuromuscular Re- education,Patient/Family Education,Discharge Planning Discharge Recommendations OT Discharge Recommendations Acute Rehab Transportation Needs at Discharge Wheelchair/Cabulance
[2021-08-25] MEDS: LABETALOL 20 MG/4 ML SYRINGE 10 MG IV (12:07)
--- NOTE | 2021-08-25 12:21 | P.PN_ITS ---
Subjective Subjective Date Patient Seen: 08/25/21 Time Patient Seen: 12:22 Interval history: Overnight patient developed worsening dysarthria, repeat studies ordered which showed no acute changes and no thrombosis. Today appears close to yesterday, occasionally is able to move his right side a little bit. no fever, chills, chest pain. Blood pressure remains high. Exam Vital Signs (past 8 hours): - 08/25/21 05:00 08/25/21 08:00 08/25/21 09:00 Temperature 98.1 F 98.2 F Pulse Rate 60 68 Respiratory Rate 20 16 Blood Pressure 188/88 H 187/88 H Pulse Oximetry 96 98 95 08/25/21 09:01 08/25/21 09:30 08/25/21 10:00 Temperature Pulse Rate 70 78 82 Respiratory Rate 22 20 21 Blood Pressure 173/76 H Pulse Oximetry 99 94 95 08/25/21 10:03 08/25/21 10:12 08/25/21 10:13 Temperature Pulse Rate 79 79 80 Respiratory Rate 24 26 H 21 Blood Pressure 184/109 H 217/123 H 231/109 H Pulse Oximetry 94 97 96 08/25/21 10:15 08/25/21 10:30 08/25/21 11:00 Temperature Pulse Rate 79 83 78 Respiratory Rate 17 26 H 25 H Blood Pressure 199/102 H Pulse Oximetry 94 95 96 08/25/21 11:12 08/25/21 12:07 Temperature Pulse Rate 80 77 Respiratory Rate 24 Blood Pressure 203/118 H 226/108 H Pulse Oximetry 92 Oxygen Delivery Method Room Air Oxygen Flow Rate 0 Narrative Exam Narrative: General:? Patient is well developed and well nourished, tearful. HEENT:? Normocephalic, atraumatic, extraocular muscles intact, oral pharynx is clear and mucous membranes are moist. Dentition is poor. Neck: supple and symmetric, trachea is midline, no cervical adenopathy. Negative for JVD Chest:? Normal AP diameter and contour without kyphoscoliosis, no tachypnea, equal chest rise bilaterally. Lungs:? CTA b/l no wheezing rhonchi or rales. Cardio:?RRR no m/r/g. Abdomen: S NT ND. No CVA tenderness. Musculoskeletal:? Muscle tone is equal bilaterally. No joint tenderness. Extremities: No edema or joint effusions. No cyanosis or clubbing. Skin:? Pale,? Warm to touch,dry and intact without rashes, ulcerations or petechiae.? Neuro:? Alert and orientated x3,? sensation to touch intact in all extremities. able to wiggle his toes on the R only. Left side strength is normal. R face is hypersensitive per patient. See NIHSS scale below. Psych:? Patient has a well-kept appearance, appropriate affect, mental status attitude thought context and judgment are appropriate for situation Objective Labs Result Diagrams: 08/25/21 04:34 08/25/21 04:34 Labs: Laboratory Results - last 24 hr 08/24/21 08/24/21 08/24/21 15:00 20:03 20:03 WBC 10.8 RBC 5.25 Hgb 16.1 Hct 46.6 MCV 88.8 MCH 30.6 MCHC 34.5 RDW 14.0 Plt Count 162 Neut % (Auto) Lymph % (Auto) Ritchie % (Auto) Eos % (Auto) Baso % (Auto) Neut # (Auto) Lymph # (Auto) Ritchie # (Auto) Eos # (Auto) Baso # (Auto) Sodium 137 Potassium 4.3 Chloride 105 Carbon Dioxide 29 BUN 20 Creatinine 1.10 Estimated GFR > 60.0 BUN/Creatinine Ratio 18.2 Glucose 242 H Hemoglobin A1c Calcium 9.8 Magnesium Troponin I 0.060 H 0.057 H NT-Pro-B Natriuret Pep Triglycerides Cholesterol LDL Cholesterol, Calc HDL Cholesterol TSH 08/24/21 08/25/21 08/25/21 20:03 04:34 04:34 WBC 8.4 RBC 5.04 Hgb 15.3 Hct 45.1 MCV 89.4 MCH 30.4 MCHC 34.0 RDW 14.1 Plt Count 149 L Neut % (Auto) 51.6 Lymph % (Auto) 32.3 Ritchie % (Auto) 10.2 Eos % (Auto) 5.1 H Baso % (Auto) 0.8 Neut # (Auto) 4300 Lymph # (Auto) 2700 Ritchie # (Auto) 900 Eos # (Auto) 400 Baso # (Auto) 100 Sodium 138 Potassium 4.2 Chloride 105 Carbon Dioxide 29 BUN 21 H Creatinine 0.98 Estimated GFR > 60.0 BUN/Creatinine Ratio 21.4 Glucose 238 H Hemoglobin A1c Calcium 9.1 Magnesium 2.2 Troponin I NT-Pro-B Natriuret Pep 647 H Triglycerides 227 H Cholesterol 224 H LDL Cholesterol, Calc 144 H HDL Cholesterol 35 L TSH 08/25/21 08/25/21 04:34 04:34 WBC RBC Hgb Hct MCV MCH MCHC RDW Plt Count Neut % (Auto) Lymph % (Auto) Ritchie % (Auto) Eos % (Auto) Baso % (Auto) Neut # (Auto) Lymph # (Auto) Ritchie # (Auto) Eos # (Auto) Baso # (Auto) Sodium Potassium Chloride Carbon Dioxide BUN Creatinine Estimated GFR BUN/Creatinine Ratio Glucose Hemoglobin A1c 9.4 H Calcium Magnesium Troponin I NT-Pro-B Natriuret Pep Triglycerides Cholesterol LDL Cholesterol, Calc HDL Cholesterol TSH 2.01 [facility] Medical History (Updated 08/24/21 @ 10:55 by Giovany Marrero DO) CVA (cerebral vascular accident) Diabetes mellitus Surgical History (Updated 08/24/21 @ 10:55 by Giovany Marrero DO) No significant past surgical history Family History (Updated 08/24/21 @ 11:00 by Giovany Marrero DO) Mother Hypertension Father No pertinent past medical history Social History household members: children Smoking Status: Former smoker alcohol intake: never Assessment & Plan Assessment & Plan narrative: 1. CVA ?- PT/OT/Speech appreciated. ?- MRI confirms infarct, CT imaging without acute abnormalities. carotids appear clean. ?- continue asa 81 mg daily, plavix not recommended given NIHSS >5. ?- started high intensity statin ?- telemetery monitoring to look for afib ?- TTE with diastolic dysfunction, normal EF. Likely hypertensive disease. 2. HTN ?- allow permissive HTN, prn labetalol. Likely will need to start oral antihypertensives tomorrow. 3. DM ?- A1c 9.4%. started on lantus 10 daily, may increase to BID tonight depending on blood sugars today. 4. myocardial injury ?- EKG with non-specific ST changes, repeat without change. will follow troponin until downtrending. Code: DNR, surrogate Arcelia araujo Dispo: Admit to inpatient, acute rehab likely. I have utilized all available immediate resources to obtain, update, or review the patient's current medications. Time Spent With Patient Critical Care time: I spent a total of [] minutes of critical care time on this patient's care today; this time is exclusive of procedural time. Quality Stroke Contraindication Not Initiating IV-Tpa: Not indicated Onset of Symptoms Date: 08/24/21 Onset of Symptoms Time: 00:00 Symptom Onset Unknown: Yes (last known normal midnight.)
--- NOTE | 2021-08-25 14:21 | PT.IPTN ---
Current Diagnoses Type 2 diabetes mellitus without complications (08/24/21) Cerebral infarction, unspecified (08/24/21) Other specified counseling (08/24/21) Physical Therapy Treatment Note M2 PT-IP Current Condition Start: 08/24/21 16:20 Freq: NEEDED Status: Active Protocol: Document 08/24/21 15:05 AB (Rec: 08/24/21 16:41 AB [id number]) Physical Therapy Current Condition Current Condition Evaluation Date 08/24/21 Treatment Diagnosis L CVA R rodolfo; difficulty in walking Onset Date 08/24/21 M3 PT-IP Subjective Start: 08/24/21 16:20 Freq: NEEDED Status: Active Protocol: Document 08/25/21 14:21 AB (Rec: 08/25/21 17:34 AB [id number]) Subjective Physical Therapy Visit Type Type Treatment Note Visit Start Time 14:21 Visit Stop Time 15:11 Total Visit Minutes 50 Number of YARDING AND FOLDING MACHINE OPERATOR Visits 0 Physical Therapy Visit Comments Patient Comments pt is agreeable to do PT M4 PT-IP Mobility and Gait Start: 08/24/21 16:20 Freq: NEEDED Status: Active Protocol: Document 08/25/21 14:21 AB (Rec: 08/25/21 17:34 AB [id number]) PT-Bed Mobility Assessment Supine to Sit Supine to Sit Maximum Assistance,Head of Bed Elevated,Bedrails Sit to Supine Sit to Supine Maximum Assistance,1 Person Assistance,2 Person Assistance ,Bedrails Scooting Scooting Up and Down in Bed Maximum Assistance PT-Transfer Assessment Comments Mobility Comments BP: 177/93 completed supine RLE exercises: AAROM: heel slides, maintaining LE in adduction withe hips/knee in flexion; completed bridging with 5 sec hold x 5 reps with max A to stabilize RLE. completed supine to sit max A and max cues. completed sitting balance: sat on EOB CGA to min A : educated on COG, posture. completed reaching with LUE ( midline crossing, forward reach up and down), maintaining sitting balance with perturbations. educated pt on keeping trunk center even with LE/UE mobility. completed RUE joint approximation and encouraged to contract isometrically. pt with LLE extension synergy with movement of RUE. educated on evenly pushing with BLE and maintaining trunk in center: completed sit to partial squat with 5 sec hold x 5 reps max A and max cues. pt completed scooting towards HOB/ towards the R with max A partial squat and pt completed x 6 reps to position towards HOB. completed sit to supine max A x 1-2 and max cues. max A for positioning. call light and table placed with reach. Nurse in room to assist with bed mobility. informed nurse and pt regarding gettting out of the bed tomorrow with nursing using mechnical lift. Left pt with his daughters in room. PT-Balance Assessment Sitting Balance and Reactions Static Sitting Balance Ability Fair Dynamic Sitting Balance Ability Poor M5 PT-IP Objective Assessments Start: 08/24/21 16:20 Freq: NEEDED Status: Active Protocol: Document 08/24/21 15:05 AB (Rec: 08/24/21 16:41 AB [id number]) Orientation Orientation/Cognition Level of Alertness Alert Orientation Name,Place,Situation Safety Awareness Decreased Safety Awareness Gross Range of Motion Lower Extremity ROM Impairments Pt with extensor tone on RLE affecting PROM in flexion Strength Lower Extremity Strength Assessment Right Impaired Comments Strength Comments R LE hip/knee flexion: 1/5 RLE hip/knee extension: 2-/5 R ankle DF/PF: 0/5 Sensation Assessment Sensation Gross Sensation WNL Muscle Tone Muscle Tone WNL No Muscle Tone Location Right Lower Extremity Type of Tone Extensor Severity of Tone Moderate M6 PT-IP Treatment Start: 08/24/21 16:20 Freq: NEEDED Status: Active Protocol: Document 08/25/21 14:21 AB (Rec: 08/25/21 17:34 AB [id number]) Physical Therapy Treatment Exercises Exercises Heel Slides Education Education Provided Safety Other Treatments Other Treatment Performed pls refer to mobility section for LE exercises completed M7 PT-IP Assessment and Plan Start: 08/24/21 16:20 Freq: NEEDED Status: Active Protocol: Document 08/25/21 14:21 AB (Rec: 08/25/21 17:34 AB [id number]) PT Summary Assessment and Plan Potential Rehabilitation Potential Good Summary Impairments Pain,ROM,Strength,Balance, Coordination,Sensation,Tone, Cognition,Bed Mobility, Transfers,Gait,Activity Tolerance Progress Towards Goals Slow Progress due to Medical Issues Assessment Summary pt requiring max A x 1-2 with bed mobility. continues to have R sided weakness. pt is motivated to and participates well during PT session. pt will benefit from acute rehab. will continue to assess progress. Goals Bed Mobility Goal Minimal Assistance Transfer Goal Minimal Assistance Gait Goal Minimal Assistance,Rodolfo Walker Gait Distance 25 Other Goals improve bed mobility SBA, transfers using hemiwalker to CGA and ambulation using hemiwalker 50 ft CGA Days to Meet Goals 10 Frequency of Treatment Frequency Of Treatment Once a Day Treatment Plan Physical Therapy Treatment Plan Bed Mobility Training,Transfer Training,Gait Training, Therapeutic Exercise,Balance Retraining,Discharge Planning, Hot or Cold Pack,Neuromuscular Re-ed,Coordination Retraining ,Manual Therapy Recommendations To Nursing Amount of Assist Needed Mechanical Lift Discharge Recommendations PT Discharge Recommendations Acute Rehab Transportation Needs at Discharge Wheelchair/Cabulance
--- NOTE | 2021-08-25 14:53 | ST.IPDYTX ---
Visit Care Team Role Provider Type Miladys Goode DO Emergency Provider Physician Referring Provider Specialty: Emergency Medicine Address: [address] [place] [address], [id number] Email: [email or web address] Giovany Marrero DO Admit Provider Physician Attending Provider Specialty: Internal Medicine Address: [address] [place] [address], [address] Email: [email or web address] COMPUTER EDUCATION PROFESSOR Dysphagia Treatment COMPUTER EDUCATION PROFESSOR Dysphagia Treatment Start: 08/25/21 14:39 Freq: Status: Active Protocol: Document 08/25/21 14:40 ZS (Rec: 08/25/21 14:53 ZS [id number]) Dysphagia Treatment Session Time Visit Start Time 11:50 Visit Stop Time 12:15 Total Visit Minutes 25 Visit Information Visit Number 1 Setting Assessment Location Acute Care Visit Type Note Type Treatment Note Next Note Type Next Note Type Treatment Note Patient Information Identification Type Name,ID Wristband Subjective Observations This is a 50-year-old male with a past medical history of diabetes and prior small stroke according to him, has not seen a primary care doctor in many years. He woke up this morning with an inability to move his right side, as well as a facial droop and slurred speech. His last known normal was when he went to sleep last night which was at midnight. He denies any numbness on his right side, and the right side of his face is actually slightly hypersensitive currently. He denies any recent fever, chills, chest pain. He has had intermittent palpitations, but mainly with exertion. He denies any shortness of breath, abdominal pain, nausea , vomiting, dysuria, urinary frequency, lower extremity edema. CT head without contrast was unremarkable, as was a CT angiogram of the head and neck , with no significant stenosis . MRI indicated an acute versus early subacute left pontine infarct. Treatment Liquids Trialed Thin Solids Trialed Regular Administration Type Tea Spoon,Straw,Self-Feeding Oral Strategies Upright at 90 degrees, Controlled Bite/Sip Size Pharyngeal Strategies Sitting Upright (90 deg),Small Bites and Sips Treatment Activities Observed pt eating lunch and informally assessed speech sound production during conversation. Provided exercises for speech sound production and practiced with pt. Assessment Patient Response to Treatment Good Rehab Potential Good Assessment of Improvement Pt exhibited speech sound production consistent with evaluation findings. NSG reported increased slurred speech last night with concern he had another stroke, though imaging did not indicate a stroke. NSG added pt was coughing with thin liquids this morning. Pt exhibited no overt signs or symptoms of aspiration during assessment with COMPUTER EDUCATION PROFESSOR. He indicated he sometimes eats/drinks too fast and will cough more when this happens. Pt indicated understanding that he needs to slow down with eating and drinking right now and demonstrated smaller sips and bites during lunch. Pt added he also has to think about talking slower, as people do not understand him when he talks quickly. Pt exhibited no difficulty with eating or drinking lunch (tomato soup, ham sandwich, mousse, fruit, water) and reported no difficulty. Continue current diet and monitor for swallow safety. Provided exercise (DDK exercise with puh tuh and kuh individually increasing in speed and then with puhtuhkuh or patticake increasing in speed) to increase rate of speech, as pt currently speaks slowly and would like to speak faster. He indicated he thinks faster than he can get the words out and stated he is frustrated with his current rate of recovery as he would like to go back to work. Pt exhibited understanding of exercise and demonstrated to COMPUTER EDUCATION PROFESSOR. Provided education regarding recovery following stroke. Diet Recommendations Recommendations Continue Current Diet Liquids Order Thin Diet Order Regular Medication Recommendations As Tolerated Additional Dietary Needs Reminders to Use Strategies Aspiration Precautions Recommended Precautions Upright at 90 Degrees,Small Bites/Sips Treatment Plan Placement Recommendation after Discharge Inpatient Rehab Facility Appropriate for Continued Therapy Yes Therapy Recommendations Recommend follow-up with speech exercises to increase rate of speech and intelligibility. Recommend follow-up with diet to ensure continued swallow safety. Dysphagia Goals 1. Pt will tolerate least restrictive diet to meet nutrition and hydration needs with no overt signs or symptoms of aspiration. 2. Pt will demonstrate rate of speech WNL while maintaining 100% intelligibility.
--- NOTE | 2021-08-25 18:28 | DIET.CONS ---
Dietary Consultation Note Admission Date: 08/24/2021 09:09 Assessment: 50 y/o M admitted and treated for CVA and myocardial injury. PMH DM, HTN Consulted for elevated hgA1c States he has had Dm for 4 years. Use to have a PCP in [facility]. Does not like doctors due to his experience with his mother's polypharmacy. He felt she was over medicated. Also has experience of his grandfather dying after one visit to the hospital. this has made him weary of medical care. Reports he is rx'd Metformin 1000 mg BID. Reports he often forgets to take his medication. States he has an abundance of Metformin at home and access is not an issue. States he use to have [employer] insurance but none currently. States he tries to avoid carbs and eat lean proteins. Low vegetable intake. Large milk intake with 16-24oz per sitting with a meal. States he checks his BG at home, but endorses BG in the 100-150 mg/dL throughout the day, despite HgA1c >7% States he is on a general diet and does not want to change to a CCD. Would rec 45-60g per meal and heart healthy diet. Current Dm meds: 10u glargine; lispro SSI BG running 169-293 mg/dL Ht: 180.34 cm Wt: 127 kg BMI: 39.0 Last BM: 08/23/21 (08/24/21 10:29) MNA: 14 Be Score: 19 Diet: 08/24/21 Dinner General (Regular) Diet Diet Modifications: Nutrition Percent Meal Consumed 100% 08/25/21 13:00 Percent Meal Consumed 100% 08/24/21 18:00 Labs: RBC 5.04 X10^6/uL (4.5-5.9) 08/25/21 04:34 Hgb 15.3 g/dL (13.5-17.5) 08/25/21 04:34 Hct 45.1 % (41-53) 08/25/21 04:34 Creatinine 0.98 mg/dL (0.66-1.25) 08/25/21 04:34 Hemoglobin A1c 9.4 % (4.0-6.0) H 08/25/21 04:34 NT-Pro-B Natriuret Pep 647 pg/mL (<125) H 08/24/21 20:03 Nutrition Diagnosis: Altered nutrition lab r/t missing metformin doses, no PCP, no h/o MNT or DSME aeb pt report, HgA1c of 9.4% Interventions: 1. Changed to heart healthy diet 2. DM education - Importance of PCP visits for DM mgmgnt and HgA1c - Impact of large milk quantities on BG with meals - Impact of exercise and nutrition on DM - Recent HgA1c and risk for stroke and heart attack - ways to help remember to take Metformin - resources for DSME Op - encouraged him to discuss insurance status with family and CM to establish plan 3.Rec BG range of 140-180 mg/dL. Monitoring/Evaluations: consult prn Electronically Signed by: Desi Rodriguez 08/25/21 18:28 Clinical Dietitian, [address] [address]
[2021-08-25] MEDS: ATORVASTATIN 20 MG TABLET 40 MG PO (21:12)
[2021-08-26] VITALS (11 sets, daily range): BP systolic 167–201; BP diastolic 85–110; PULSE 63–87; RESP 9–34; TEMP 36.4–36.8; O2SAT 92–98
[2021-08-26 05:14] LABS: BUN Creatinine Ratio 19.8 (6-22); Blood Urea Nitrogen 17 mg/dL (9-20); Calcium 8.7 mg/dL (8.4-10.2); Carbon Dioxide 30 mmol/L (22-32); Chloride 104 mmol/L (98-107); Estimated Glomerular Filt Rate > 60.0 mL/min (>60); Glucose 184 mg/dL (70-100); HEMOLYSIS < 15 (0-50); Sodium 138 mmol/L (137-145)
[2021-08-26 05:21] LABS: Add Manual Diff / Slide Review NO; Basophils Absolute Auto 100 /uL (0-100); Basophils Percent Auto 1.7 % (0-2); Eosinophils Absolute Auto 400 /uL (0-450); Eosinophils Percent Auto 4.7 % (2-4); Hematocrit 44.9 % (41-53); Hemoglobin 15.1 g/dL (13.5-17.5); Lymphocytes Absolute Auto 2600 /uL (1100-4500); Mean Corpuscular HGB Conc 33.7 % (30-36); Mean Corpuscular Hemoglobin 30.1 PG (26-34); Mean Corpuscular Volume 89.3 fL (80-100); Monocytes Absolute Auto 600 /uL (0-900); Monocytes Percent Auto 7.2 % (3-14); Neutrophils Absolute Auto 4600 /uL (1500-7000); Neutrophils Percent Auto 55.4 % (50-75); Platelet Count 163 X10^3/uL (150-400); Red Blood Cell Count 5.03 X10^6/uL (4.5-5.9); White Blood Cell Count 8.3 X10^3/uL (4.5-11.0)
--- NOTE | 2021-08-26 08:45 | P.PN_ITS ---
Subjective Subjective Date Patient Seen: 08/26/21 Interval history: He is seen today in his room to follow-up new stroke and hypertension. His diastolic reached 110 today. He is scheduled to begin his 1st blood pressure medicine of lisinopril today. I visited at length with him and his daughter today. We share several acquaintances. They are very pleasant to visit with. 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 His LDL is 144 with a cholesterol of 224 and a CBC and BMP that are normal today. Exam Vital Signs (past 8 hours): - 08/26/21 01:00 08/26/21 04:00 08/26/21 05:00 Temperature 97.6 F Pulse Rate 64 69 Respiratory Rate 20 20 Blood Pressure 179/110 H Pulse Oximetry 92 95 93 Oxygen Delivery Method Room Air Oxygen Flow Rate 2 Narrative Exam Narrative: Heart is regular rate and rhythm without murmur Lungs are clear to auscultation bilaterally Extremities have no ankle edema Alert and oriented. No apparent distress He has full tongue deviation to the left side along with dense weakness on the right side and Babinski's that are upgoing on the right and downgoing on the left. Objective Labs Result Diagrams: 08/26/21 04:31 08/26/21 04:31 Labs: Laboratory Results - last 24 hr 08/26/21 08/26/21 04:31 04:31 WBC 8.3 RBC 5.03 Hgb 15.1 Hct 44.9 MCV 89.3 MCH 30.1 MCHC 33.7 RDW 14.0 Plt Count 163 Neut % (Auto) 55.4 Lymph % (Auto) 31.0 Cook % (Auto) 7.2 Eos % (Auto) 4.7 H Baso % (Auto) 1.7 Neut # (Auto) 4600 Lymph # (Auto) 2600 Cook # (Auto) 600 Eos # (Auto) 400 Baso # (Auto) 100 Sodium 138 Potassium 4.0 Chloride 104 Carbon Dioxide 30 BUN 17 Creatinine 0.86 Estimated GFR > 60.0 BUN/Creatinine Ratio 19.8 Glucose 184 H Calcium 8.7 Magnesium 2.0 PFSH Medical History (Updated 08/24/21 @ 10:55 by Giovany Marrero DO) CVA (cerebral vascular accident) Diabetes mellitus Surgical History (Updated 08/24/21 @ 10:55 by Giovany Marrero DO) No significant past surgical history Family History (Updated 08/24/21 @ 11:00 by Giovany Marrero DO) Mother Hypertension Father No pertinent past medical history Social History household members: children Smoking Status: Former smoker alcohol intake: never Assessment & Plan Assessment & Plan narrative: 1. CVA ?- PT/OT/Speech notes are reviewed and appreciated ?- MRI confirms infarct, CT imaging without acute abnormalities. carotids appear clean. ?- continue asa 81 mg daily, plavix not recommended given NIHSS >5. ?- started high intensity statin ?- telemetry monitoring to monitor for afib ?- TTE with diastolic dysfunction, normal EF. Likely hypertensive disease. - currently on track for inpatient rehab at [facility] pending insurance approval. 2. HTN ?- allowed permissive HTN, prn labetalol for first 2-3 days. Started on 20 mg lisinopril 08/26 and titrate each day. 3. DM ?- A1c 9.4%. started on lantus 10 daily, may increase as indicated 4. myocardial injury ?- EKG with non-specific ST changes, repeat without change. will follow troponin until downtrending. Code: DNR, surrogate Arceliaher danielson Dispo: Accepted and now Pending insurance approval for inpatient rehab at [facility]. Time Spent With Patient Critical Care time: I spent a total of [] minutes of critical care time on this patient's care today; this time is exclusive of procedural time. Quality Stroke Contraindication Not Initiating IV-Tpa: Not indicated Onset of Symptoms Date: 08/24/21 Onset of Symptoms Time: 00:00 Symptom Onset Unknown: Yes (last known normal midnight.)
[2021-08-26] MEDS: INSULIN GLARGINE 100 UNIT/ML 3ML PEN 10 UNIT SUBCUT (09:29)
[2021-08-26] MEDS: INSULIN LISPRO 100 UNIT/ML 3ML VIAL SUBCUT ×3 (09:30→17:42)
[2021-08-26] MEDS: ENOXAPARIN 40 MG/0.4 ML SYRINGE SUBCUT (09:31)
[2021-08-26] MEDS: lisinopriL 20 MG TABLET PO (09:31)
[2021-08-26] MEDS: ASPIRIN EC 81 MG TABLET PO (09:31)
--- NOTE | 2021-08-26 11:12 | PT.IPTN ---
Current Diagnoses Type 2 diabetes mellitus without complications (08/24/21) Cerebral infarction, unspecified (08/24/21) Other specified counseling (08/24/21) Physical Therapy Treatment Note M2 PT-IP Current Condition Start: 08/24/21 16:20 Freq: NEEDED Status: Active Protocol: Document 08/24/21 15:05 AB (Rec: 08/24/21 16:41 AB [id number]) Physical Therapy Current Condition Current Condition Evaluation Date 08/24/21 Treatment Diagnosis L CVA R rodolfo; difficulty in walking Onset Date 08/24/21 M3 PT-IP Subjective Start: 08/24/21 16:20 Freq: NEEDED Status: Active Protocol: Document 08/26/21 11:12 AB (Rec: 08/26/21 12:57 AB [id number]) Subjective Physical Therapy Visit Type Type Treatment Note Visit Start Time 11:12 Visit Stop Time 11:55 Total Visit Minutes 43 Number of COUNTY PROGRAM TECHNICIAN Visits 0 Physical Therapy Visit Comments Patient Comments agreeable to do PT M4 PT-IP Mobility and Gait Start: 08/24/21 16:20 Freq: NEEDED Status: Active Protocol: Document 08/26/21 11:12 AB (Rec: 08/26/21 12:57 AB [id number]) PT-Transfer Assessment Sit to and From Stand Sit to and from Stand Maximum Assistance,2 Person Assistance,Use of Upper Extremities Equipment Transfer Assistive Device Gait Belt,Rodolfo Walker Orthotic/Prosthetic Devices or Brace: No Comments Mobility Comments pt has high BP but MD cleared as long as pt's BP is <220/120 . pt sitting on chair and agreed to do PT. Co-tx with OT conducted due to pt's complex needs with mobility requiring 1 assisting with balance and another assisting with movement. BP in sittng prior to mobiltiy : 199/106. educated pt on midline, COG and use of RLE for mobility, scooting and positioning of body prior to sit to stand. completed sit to stand max A x 2 and max cues. (+) R knee buckling and pt unsteady. instructed pt to sit back down . educated pt on techniques. completed sit to stand again max A x 2 and max cues. Able to go to upright position, cued to use hemiwalker for support. noted slight trunk rotation to the R. pt tolerated ~ 10 sec and sat back down. BP checked: 222/ 106. pt rested. cued for deep breathing. BP checked prior to proceeding with activity: 217/107. pt agreed to stand again and completed max A x 2 and max cues. tolerated ~ 5 sec. pt rested. completed seated push-up on chair simulating sit to stand technique with pt holding position mid way ~ 5 sec: pt completed x 3 max A x 2 and max cues for midline posture, use of RUE/LE. pt rested. BP checked: 227/113. assisted pt with positioning on chair. call light and table placed within reach. BP at end of tx session: 210/95. Left pt with daughter in room. Nurse aware of pt's BP PT-Balance Assessment Standing Balance and Reactions Static Standing Balance Ability Poor Dynamic Standing Balance Ability Poor M5 PT-IP Objective Assessments Start: 08/24/21 16:20 Freq: NEEDED Status: Active Protocol: Document 08/24/21 15:05 AB (Rec: 08/24/21 16:41 AB [id number]) Orientation Orientation/Cognition Level of Alertness Alert Orientation Name,Place,Situation Safety Awareness Decreased Safety Awareness Gross Range of Motion Lower Extremity ROM Impairments Pt with extensor tone on RLE affecting PROM in flexion Strength Lower Extremity Strength Assessment Right Impaired Comments Strength Comments R LE hip/knee flexion: 1/5 RLE hip/knee extension: 2-/5 R ankle DF/PF: 0/5 Sensation Assessment Sensation Gross Sensation WNL Muscle Tone Muscle Tone WNL No Muscle Tone Location Right Lower Extremity Type of Tone Extensor Severity of Tone Moderate M6 PT-IP Treatment Start: 08/24/21 16:20 Freq: NEEDED Status: Active Protocol: Document 08/26/21 11:12 AB (Rec: 08/26/21 12:57 AB [email or web address]) Physical Therapy Treatment Education Education Provided Safety M7 PT-IP Assessment and Plan Start: 08/24/21 16:20 Freq: NEEDED Status: Active Protocol: Document 08/26/21 11:12 AB (Rec: 08/26/21 12:57 AB [email or web address]) PT Summary Assessment and Plan Potential Rehabilitation Potential Good Summary Impairments Pain,ROM,Strength,Balance, Coordination,Sensation,Tone, Cognition,Bed Mobility, Transfers,Gait,Activity Tolerance Progress Towards Goals Slow Progress due to Medical Issues,Slow Progress - Other Assessment Summary pt slowly progress with mobility but continues to require max A x 2 for sit to stand. recommending continued use of mechanical lift for transfers with nursing care. pt is motivated and participates well during PT and will benefit from acute rehab to improve strength and function. Goals Bed Mobility Goal Minimal Assistance Transfer Goal Minimal Assistance Gait Goal Minimal Assistance,Rodolfo Walker Gait Distance 25 Other Goals improve bed mobility SBA, transfers using hemiwalker to CGA and ambulation using hemiwalker 50 ft CGA Days to Meet Goals 10 Frequency of Treatment Frequency Of Treatment Once a Day Treatment Plan Physical Therapy Treatment Plan Bed Mobility Training,Transfer Training,Gait Training, Therapeutic Exercise,Balance Retraining,Discharge Planning, Hot or Cold Pack,Neuromuscular Re-ed,Coordination Retraining ,Manual Therapy Recommendations To Nursing Amount of Assist Needed Mechanical Lift Discharge Recommendations PT Discharge Recommendations Acute Rehab Transportation Needs at Discharge Wheelchair/Cabulance
--- NOTE | 2021-08-26 11:47 | CM.DANOTE ---
DCP Assessment: patient is a 50 yr old male here with CVA. patient lives in two story home with daughter. Patient is independent at baseline with all ADLs and Drove prior to admission. Cm spoke with patient and he would like to go to Acute rehab at [facility], CM spoke with Dr. Cooley who stated that the patient was accepted to [facility] for there acute rehab. CM called Shannan who requested therapy notes and current progress note which CM faxed. I: [employer] and medicaid Plan: DC to [facility] acute rehab. who is reviewing clinicals and will work on insurance authorization. Hopefully patient will DC to [facility] tomorrow or Saturday once auth is received Katarina Tompkins RNapplications manager Discharge Planning/Care Management CM Discharge Assessment Start: 08/26/21 11:30 Freq: Status: Active Protocol: Document 08/26/21 11:30 HS (Rec: 08/26/21 11:47 HS [id number]) Discharge Planning Assessment Assigned Clerical And Office Support Workers Katarina tompkins RN Case Mananger DPOA/Assigned Designee Name Carolina Teague- daughter Contact Information [phone] Advance Directives? No History Provided By Patient Has Patient been admitted in last 30 No days? Prior Living Arrangements House Household Members children Type of transporation used prior to Drives own vehicle admit Comment Now will need famly support with driving Independent with ADL's Yes Is patient alert and oriented? Yes: slurring words Needs Assistance With Home Chores / Shopping Caregiver for Another No Comment didn't use DME prior to hospitalization Comment working on acute rehab admission to [facility] [place] [facility] Barriers to Discharge Yes Comment accepting acute rehab facility Discharge Plan Inpatient Rehab Unit Referrals Initiated Other Additional Comment called shannan with [facility] and working on getting insurance authorization Whiteboard Updated in Patient Room with Yes name and ext. # of Clerical And Office Support Workers Review Status In Process Next Review Type Continued Stay Review
--- NOTE | 2021-08-26 11:53 | OT.IP.TRT ---
Current Diagnoses Type 2 diabetes mellitus without complications (08/24/21) Cerebral infarction, unspecified (08/24/21) Other specified counseling (08/24/21) Occupational Therapy Treatment Note M2 OT-IP Current Condition Start: 08/25/21 11:44 Freq: Status: Active Protocol: Document 08/25/21 11:44 [facility] (Rec: 08/25/21 12:08 [facility] [id number]) Occupational Therapy Current Condition Current Condition Evaluation Date 08/25/21 Treatment Diagnosis CVA, right hemiplegia Diagnosis Onset Date 08/25/21 M3 OT- IP Subjective and Pain Start: 08/25/21 11:44 Freq: Status: Active Protocol: Document 08/26/21 11:13 [facility] (Rec: 08/26/21 12:37 [facility] [id number]) OT- Subjective Occupational Therapy Visit Type Type Treatment Note Visit Start Time 11:13 Visit Stop Time 11:53 Total Visit Minutes 40 Notes Cotxt with PT for incorporation of RUE/RLE during mobility needs and trunk control. Occupational Therapy Visit Comments Patient Comments Pt agreed to try to get up. Nursing wanting to be informed if his BP is above 220/120. Patient/Caregiver Goals TO get better. OT Pain Assessment Pain When Pain Assessed At Rest Pain Present Pain Present Denied Pain M6 OT- IP Functional Cognition Start: 08/25/21 11:44 Freq: Status: Active Protocol: Document 08/26/21 11:13 [facility] (Rec: 08/26/21 12:37 [facility] [id number]) Cognitive Factors Limiting Selfcare Function Cognitive Comments Cognitive Assessment Comments Pt a little impulsive and needing vc to slow down. Pt is very motivated to get better. Able to talk to pt with PT regarding what to except for his recovery,to be patient with himself and that it will take effort, patience, and that getting better is not just a matter of getting stronger. M7 OT- IP Mobility and Balance Start: 08/25/21 11:44 Freq: Status: Active Protocol: Document 08/26/21 11:13 [facility] (Rec: 08/26/21 12:37 [facility] [id number]) OT-Transfer Assessment Sit to and From Stand Sit to and from Stand Maximum Assistance,2 Person Assistance Comments Mobility Comments MAX A 1-2 to help scoot forwards, two person asisst when able to help incorporate his right hand on the armrest of the recliner to help weight bear through and also assist to help scoot his right side out. MAX AX 2 to stand to joaquín-walker assist from PT to block RLE and use of sheet to help hold RUE in place and assist to help stand upright. Pt able to stand with joaquín walker and just PT assist when lined upright and in midline and as pt tired needing MAX AX 2. BP sitting in recliner 199/106, after standing 222/106, after rest break sitting 217/107, after scooting 227/113, and after resting again 210/95. Nursing notified of BP. OT- Balance Assessment Sitting Balance and Reactions Static Sitting Balance Ability Good M8 OT- IP Objective Assessments Start: 08/25/21 11:44 Freq: Status: Active Protocol: Document 08/26/21 11:13 [facility] (Rec: 08/26/21 12:37 [facility] [id number]) OT Strength Upper Extremity Strength Assessment Right Impaired Shoulder 2- Elbow 2- Forearm 0 Wrist 0 Hand 0 Comments Strength Comments Noted more movement in his shoulders when assisting him with shoulder elevation and retraction today. OT- Coordination Assessment Upper Extremity Finger to Nose Test Right UE Impaired M9 OT- IP Assessment and Plan Start: 08/25/21 11:44 Freq: Status: Active Protocol: Document 08/26/21 11:13 [facility] (Rec: 08/26/21 12:37 [facility] [id number]) OT Summary Assessment and Plan Potential Rehabilitation Potential Excellent Analytic Complexity at Evaluation High Summary OT Impairments Strength,Balance,Coordination, Tone,Functional Mobility,Self- Feeding,Grooming,Dressing, Toileting,Bathing,Toilet Transfers,Shower Transfers, Activity Tolerance Progress Towards Goals Progressing Toward Goals Assessment Summary Pt able to come to stand today with OT/PT, and with assist able to weight bear through his right UE for scooting in the recliner. Pt will greatly benefit from acute rehab. Goals Self-Feeding Goal Independent Grooming Goal Independent Dressing Goal Independent Toileting Goal Independent Bathing Goal Independent Toilet Transfer Goal Independent Shower Transfer Goal Independent OT-Other Goals Pt to incorporate use of RUE during ADL and mobility needs. All goals above with consideration of pt's use of RUE for needs, pt is right hand dominant. Days to Meet Goals 59 Frequency of Treatment Frequency Of Treatment Once a Day Treatment Plan OT Treatment Plan ADL Training,Functional Mobility,Neuromuscular Re- education,Patient/Family Education,Discharge Planning Discharge Recommendations OT Discharge Recommendations Acute Rehab Transportation Needs at Discharge Wheelchair/Cabulance
--- NOTE | 2021-08-26 12:30 | P.DS_ITS ---
History of Present Illness History of Present Illness Chief complaint: possible stroke Narrative: This is a 50-year-old male with a past medical history of diabetes and prior small stroke according to him, has not seen a primary care doctor in many years.? He woke up this morning with an inability to move his right side, as well as a facial droop and slurred speech.? His last known normal was when he went to sleep last night which was at midnight.? He denies any numbness on his right side, and the right side of his face is actually slightly hypersensitive currently.? He denies any recent fever, chills, chest pain.? He has had intermittent palpitations, but mainly with exertion.? He denies any shortness of breath, abdominal pain, nausea, vomiting, dysuria, urinary frequency, lower extremity edema. In the emergency room, the patient was markedly hypertensive, chemistries revealed a mild hyponatremia with sodium of 133, but glucose was elevated at 253.? Troponin was indeterminate at 0.061.? Urine drug screen was negative.? Alcohol level was negative.? COVID-[address] testing was [address] CT head without contrast was unremarkable, as was a CT angiogram of the head and neck, with no significant stenosis.? Telestroke was consulted in the emergency room, given no significant large vessel occlusion and that he was outside the tPA window they recommended medical management with aspirin. Discharge Providers Provider Date of admission: 08/24/21 09:09 Consults: 08/24/21 09:18 Consult to Occupational Therapy Evaluate & Treat Comment: Physician Instructions: Evaluate and treat Consult to Physical Therapy Evaluate & Treat Comment: Physician Instructions: Evaluate and Treat Consult to Speech Therapy Evaluate & Treat Comment: Physician Instructions: Evaluate and treat 08/25/21 17:13 Consult to Dietitian, Adult Routine Comment: Reason For Exam: A1C 9.2 Discharge provider: David Cooley MD Exam Vital Signs (past 8 hours): - 08/26/21 05:00 08/26/21 09:38 08/26/21 09:39 Temperature 97.8 F Pulse Rate 72 Respiratory Rate 20 Blood Pressure 201/97 H Pulse Oximetry 93 97 96 Oxygen Delivery Method Room Air Oxygen Flow Rate 0 Objective Labs Result Diagrams: 08/26/21 04:31 08/26/21 04:31 Labs: Laboratory Results - last 24 hr 08/26/21 08/26/21 04:31 04:31 WBC 8.3 RBC 5.03 Hgb 15.1 Hct 44.9 MCV 89.3 MCH 30.1 MCHC 33.7 RDW 14.0 Plt Count 163 Neut % (Auto) 55.4 Lymph % (Auto) 31.0 [place] % (Auto) 7.2 Eos % (Auto) 4.7 H Baso % (Auto) 1.7 Neut # (Auto) 4600 Lymph # (Auto) 2600 [place] # (Auto) 600 Eos # (Auto) 400 Baso # (Auto) 100 Sodium 138 Potassium 4.0 Chloride 104 Carbon Dioxide 30 BUN 17 Creatinine 0.86 Estimated GFR > 60.0 BUN/Creatinine Ratio 19.8 Glucose 184 H Calcium 8.7 Magnesium 2.0 PFSH Medical History (Updated 08/24/21 @ 10:55 by Giovany Marrero DO) CVA (cerebral vascular accident) Diabetes mellitus Surgical History (Updated 08/24/21 @ 10:55 by Giovany Marrero DO) No significant past surgical history Family History (Updated 08/24/21 @ 11:00 by Giovany Marrero DO) Mother Hypertension Father No pertinent past medical history Social History household members: children Smoking Status: Former smoker alcohol intake: never Discharge Assessment & Plan Assessment and Plan Plan of Treatment: 1. CVA ?- PT/OT/Speech appreciated. ?- MRI confirms infarct, CT imaging without acute abnormalities. carotids appear clean. ?- continue asa 81 mg daily, plavix not recommended given NIHSS >5. ?- started high intensity statin ?- telemetery monitoring to look for afib ?- TTE with diastolic dysfunction, normal EF. Likely hypertensive disease. 2. HTN ?- allow permissive HTN, prn labetalol. Likely will need to start oral antihypertensives tomorrow. 3. DM ?- A1c 9.4%. started on lantus 10 daily, may increase to BID tonight depending on blood sugars today. 4. myocardial injury ?- EKG with non-specific ST changes, repeat without change. will follow troponin until downtrending. Code: DNR, surrogate Arcelia araujo Dispo: Admit to inpatient, acute rehab likely. Discharge Plan Discharge Plan Patient Disposition: Xfer Inpatient Rehab Other facility: [facility] inpatient rehab Under care of provider: [employer] Architect Discharge orders & Medications Discharge Orders: Discharge (Order); Ordered 08/26/21 Ordered By: David Cooley Prescriptions: New enoxaparin [Lovenox] 40 mg/0.4 mL Syringe 40 mg SUBCUT DAILY Qty: 30 0RF atorvastatin [Lipitor] 20 mg Tablet 40 mg PO BEDTIME Qty: 30 0RF aspirin 81 mg Tablet,Delayed Release (Dr/Ec) 81 mg PO DAILY Qty: 30 0RF Lantus Solostar U-100 Insulin 100 unit/mL (3 mL) Insulin Pen 10 unit SUBCUT DAILY Qty: 30 0RF lisinopril 20 mg Tablet 20 mg PO DAILY Qty: 30 0RF No Action No Known Home Medications 0RF Diet/Activity/Treatments Diet: Carb-consistent/Diabetic Liquid consistency: Normal/Thin Food texture: Regular [facility] Rehab type: Physical therapy, Occupational therapy and Speech therapy Quality Stroke Contraindication Not Initiating IV-Tpa: Not indicated Onset of Symptoms Date: 08/24/21 Onset of Symptoms Time: 00:00 Symptom Onset Unknown: Yes (last known normal midnight.)
[2021-08-26] MEDS: ATORVASTATIN 20 MG TABLET 40 MG PO (21:32)
[2021-08-26] MEDS: ACETAMINOPHEN 325 MG TABLET 650 MG PO (23:36)
[2021-08-27] VITALS (7 sets, daily range): BP systolic 146–217; BP diastolic 80–117; PULSE 64–76; RESP 17–24; TEMP 36.1–36.6; O2SAT 93–97
[2021-08-27 05:08] LABS: Add Manual Diff / Slide Review NO; Basophils Absolute Auto 100 /uL (0-100); Basophils Percent Auto 0.7 % (0-2); Eosinophils Absolute Auto 400 /uL (0-450); Eosinophils Percent Auto 4.9 % (2-4); Hematocrit 45.4 % (41-53); Hemoglobin 15.1 g/dL (13.5-17.5); Lymphocytes Absolute Auto 3300 /uL (1100-4500); Lymphocytes Percent Auto 38.5 % (25-40); Mean Corpuscular HGB Conc 33.3 % (30-36); Mean Corpuscular Volume 90.2 fL (80-100); Monocytes Absolute Auto 800 /uL (0-900); Monocytes Percent Auto 8.9 % (3-14); Neutrophils Absolute Auto 4000 /uL (1500-7000); Platelet Count 159 X10^3/uL (150-400); Red Blood Cell Count 5.03 X10^6/uL (4.5-5.9); Red Cell Distribution Width 13.9 % (11.6-14.8); White Blood Cell Count 8.5 X10^3/uL (4.5-11.0)
[2021-08-27] MEDS: ACETAMINOPHEN 325 MG TABLET 650 MG PO ×2 (07:35→15:06)
[2021-08-27 08:02] LABS: BUN Creatinine Ratio 19.6 (6-22); Blood Urea Nitrogen 18 mg/dL (9-20); Calcium 9.1 mg/dL (8.4-10.2); Carbon Dioxide 28 mmol/L (22-32); Chloride 104 mmol/L (98-107); Estimated Glomerular Filt Rate > 60.0 mL/min (>60); Glucose 174 mg/dL (70-100); HEMOLYSIS < 15 (0-50); Magnesium 2.1 mg/dL (1.6-2.3); Sodium 139 mmol/L (137-145)
[2021-08-27] MEDS: ASPIRIN EC 81 MG TABLET PO (08:35)
[2021-08-27] MEDS: ENOXAPARIN 40 MG/0.4 ML SYRINGE SUBCUT (08:35)
[2021-08-27] MEDS: lisinopriL 20 MG TABLET PO (08:35)
[2021-08-27] MEDS: INSULIN GLARGINE 100 UNIT/ML 3ML PEN 10 UNIT SUBCUT (08:36)
[2021-08-27] MEDS: INSULIN LISPRO 100 UNIT/ML 3ML VIAL SUBCUT ×3 (08:37→17:31)
--- NOTE | 2021-08-27 12:08 | CM.DPC ---
DCP Cont: Have spoken to Shannan at [facility], she is in for [facility]. She was asking for therapy notes, and updated progress notes so she can submit auth for [employer]. Faxed her over information, and kept getting errors on fax. She continue to call for information. Let her know that fax is not working. Sent to another fax at [phone]. She then called for original O.T eval, and med sheets. Faxed them over. Updated patient and daughter, he was hoping to go today. Let him know that insurance is the barrier, and that auth needs to be obtained with his insurance so he can be covered for their inpatient rehab facility. P: DCP to continue to follow. Shannan at [facility] is working on auth with [employer] to submit today. Lynette Callahan RN/Pharmaceutical Process Engineer
--- NOTE | 2021-08-27 13:54 | PT.IPTN ---
Current Diagnoses Type 2 diabetes mellitus without complications (08/24/21) Cerebral infarction, unspecified (08/24/21) Other specified counseling (08/24/21) Physical Therapy Treatment Note M2 PT-IP Current Condition Start: 08/24/21 16:20 Freq: NEEDED Status: Active Protocol: Document 08/24/21 15:05 AB (Rec: 08/24/21 16:41 AB [email or web address]) Physical Therapy Current Condition Current Condition Evaluation Date 08/24/21 Treatment Diagnosis L CVA R rodolfo; difficulty in walking Onset Date 08/24/21 M3 PT-IP Subjective Start: 08/24/21 16:20 Freq: NEEDED Status: Active Protocol: Document 08/27/21 13:54 AW (Rec: 08/27/21 14:14 AW [email or web address]) Subjective Physical Therapy Visit Type Type Treatment Note Visit Start Time 13:20 Visit Stop Time 13:54 Total Visit Minutes 34 Number of HOSPITALIST MEDICAL DIRECTOR Visits 0 Physical Therapy Visit Comments Patient Comments agreeable to do PT M4 PT-IP Mobility and Gait Start: 08/24/21 16:20 Freq: NEEDED Status: Active Protocol: Document 08/27/21 13:54 AW (Rec: 08/27/21 14:14 AW [id number]) PT-Bed Mobility Assessment Supine to Sit Supine to Sit Maximum Assistance,Head of Bed Elevated,Bedrails Scooting Scooting to Edge of Bed Maximum Assistance PT-Transfer Assessment Sit to and From Stand Sit to and from Stand Maximum Assistance,1 Person Assistance,2 Person Assistance ,Use of Upper Extremities Equipment Transfer Assistive Device Gait Belt,Rodolfo Walker Transfers Transfer Destination Chair Transfer Technique Stand Pivot Transfer Ability Level of Assist Maximum Assistance,1 Person Assistance,2 Person Assistance ,Use of Upper Extremities Comments Mobility Comments BP 167/106 with pt sitting up in the bed. Worked on [employer] heel slides and pt was able to hold RLE adducted in max hip/ knee flexion position CGA up to five seconds. Bridging with max assist. Max A x 1 to move into sitting on R EOB. Pt initially leans to the right but is able to correct to midline in response to cues. PT provided tactile facilitation/cues for R hand placement on the bed and pt able to resist all perturbations except rotational. PT moved R hand to pt's lap and pt set L hand on his lap. Continued work on midline sitting and resisting perturbations. Pt able to reach LUE toward therapist hand up/down/left/right with CGA/min A for balance while reaching toward right. Pt stood max A x 1 as PT held RUE and left hand reached independently for HW. Pt able to stand ~15 seconds before needing to sit. Pt completed tricep push up/pressure relief x 3 with max assist. He stood again max A x 1 as PT held RUE for joint protection. He pivoted toward the left to transfer to chair max A x 1. He completed chair push ups x 2. PT left pt in the chair with call light and tray table in reach. PT-Balance Assessment Sitting Balance and Reactions Static Sitting Balance Ability Fair Dynamic Sitting Balance Ability Fair Standing Balance and Reactions Static Standing Balance Ability Poor Dynamic Standing Balance Ability Poor Device Used HW M5 PT-IP Objective Assessments Start: 08/24/21 16:20 Freq: NEEDED Status: Active Protocol: Document 08/24/21 15:05 AB (Rec: 08/24/21 16:41 AB [email or web address]) Orientation Orientation/Cognition Level of Alertness Alert Orientation Name,Place,Situation Safety Awareness Decreased Safety Awareness Gross Range of Motion Lower Extremity ROM Impairments Pt with extensor tone on RLE affecting PROM in flexion Strength Lower Extremity Strength Assessment Right Impaired Comments Strength Comments R LE hip/knee flexion: 1/5 RLE hip/knee extension: 2-/5 R ankle DF/PF: 0/5 Sensation Assessment Sensation Gross Sensation WNL Muscle Tone Muscle Tone WNL No Muscle Tone Location Right Lower Extremity Type of Tone Extensor Severity of Tone Moderate M6 PT-IP Treatment Start: 08/24/21 16:20 Freq: NEEDED Status: Active Protocol: Document 08/27/21 13:54 AW (Rec: 08/27/21 14:14 AW [email or web address]) Physical Therapy Treatment Education Education Provided Safety Other Treatments Other Treatment Performed pls refer to mobility section for LE exercises completed M7 PT-IP Assessment and Plan Start: 08/24/21 16:20 Freq: NEEDED Status: Active Protocol: Document 08/27/21 13:54 AW (Rec: 08/27/21 14:14 [email or web address]) PT Summary Assessment and Plan Summary Impairments Pain,ROM,Strength,Balance, Coordination,Sensation,Tone, Cognition,Bed Mobility, Transfers,Gait,Activity Tolerance Progress Towards Goals Slow Progress due to Medical Issues,Slow Progress - Other Assessment Summary Pt continues to progress slowly. Sitting dynamic balance is improving. He continues to require max A x 2 for sit to stand and pivot transfer with rodolfo walker. PT recommends acute rehab. Goals Bed Mobility Goal Minimal Assistance Transfer Goal Minimal Assistance Gait Goal Minimal Assistance,Rodolfo Walker Gait Distance 25 Other Goals improve bed mobility SBA, transfers using hemiwalker to CGA and ambulation using hemiwalker 50 ft CGA Days to Meet Goals 10 Frequency of Treatment Frequency Of Treatment Once a Day Treatment Plan Physical Therapy Treatment Plan Bed Mobility Training,Transfer Training,Gait Training, Therapeutic Exercise,Balance Retraining,Discharge Planning, Hot or Cold Pack,Neuromuscular Re-ed,Coordination Retraining ,Manual Therapy Other Recommendations and Next Treatment pre-standing activities; Focus sitting balance; standing tolerance and standing balance with HW Recommendations To Nursing Amount of Assist Needed Mechanical Lift Discharge Recommendations PT Discharge Recommendations Acute Rehab Transportation Needs at Discharge Wheelchair/Cabulance
--- NOTE | 2021-08-27 13:56 | PM.PN.1 ---
Subjective Subjective Date Patient Seen: 08/27/21 Time Patient Seen: 08:00 Interval history: Today he says he feels he has very slight improvement in movement. He has ability to have slight proximal right leg movement, but now movement at feet or toes. He can move his right shoulder, but not further distally. His speech is slurred but more clear than previously. Exam Vital Signs (past 8 hours): - 08/27/21 08:00 08/27/21 09:55 08/27/21 12:00 Temperature 98 F 97.8 F Pulse Rate 69 76 Respiratory Rate 21 18 Blood Pressure 192/107 H 176/90 H Pulse Oximetry 97 96 96 Oxygen Delivery Method Room Air Oxygen Flow Rate 0 Narrative Exam Narrative: CV: Heart is regular rate and rhythm without murmur PULM: Lungs are clear to auscultation bilaterally NEURO: tongue deviates left, significant weakness on the right, with slight proximal right leg and right arm movement\, but no distal right leg/arm movement. Speech slurred? Objective Labs Result Diagrams: 08/27/21 04:30 08/27/21 04:30 Labs: Laboratory Results - last 24 hr 08/27/21 08/27/21 04:30 04:30 WBC 8.5 RBC 5.03 Hgb 15.1 Hct 45.4 MCV 90.2 MCH 30.0 MCHC 33.3 RDW 13.9 Plt Count 159 Neut % (Auto) 47.0 L Lymph % (Auto) 38.5 [place] % (Auto) 8.9 Eos % (Auto) 4.9 H Baso % (Auto) 0.7 Neut # (Auto) 4000 Lymph # (Auto) 3300 [place] # (Auto) 800 Eos # (Auto) 400 Baso # (Auto) 100 Sodium 139 Potassium 4.0 Chloride 104 Carbon Dioxide 28 BUN 18 Creatinine 0.92 Estimated GFR > 60.0 BUN/Creatinine Ratio 19.6 Glucose 174 H Calcium 9.1 Magnesium 2.1 PFSH Medical History (Updated 08/24/21 @ 10:55 by Giovany Marrero DO) CVA (cerebral vascular accident) Diabetes mellitus Surgical History (Updated 08/24/21 @ 10:55 by Giovany Marrero DO) No significant past surgical history Family History (Updated 08/24/21 @ 11:00 by Giovany Marrero DO) Mother Hypertension Father No pertinent past medical history Social History household members: children Smoking Status: Former smoker alcohol intake: never Assessment & Plan Assessment & Plan narrative: 1. CVA ?- PT/OT/Speech notes are reviewed and appreciated ?- MRI confirms infarct, CT imaging without acute abnormalities. carotids appear clean. ?- continue asa 81 mg daily, plavix not recommended given NIHSS >5. ?- started high intensity statin ?- telemetry monitoring to monitor for afib ?- TTE with diastolic dysfunction, normal EF. Likely hypertensive disease. - currently on track for inpatient rehab at [facility] pending insurance approval. 2. HTN ?- allowed permissive HTN, prn labetalol for first 2-3 days.? Started on 20 mg lisinopril 08/26 and titrate each day. Added amlodipine 08/27. 3. DM ?- A1c 9.4%. started on lantus 10 daily, may increase as indicated 4. myocardial injury ?- EKG with non-specific ST changes, repeat without change. will follow troponin until downtrending. Code: DNR, surrogate Arcelia araujo Dispo:? Accepted and now Pending insurance approval for inpatient rehab at [facility]. Medically stable for discharge Time Spent With Patient Critical Care time: I spent a total of [] minutes of critical care time on this patient's care today; this time is exclusive of procedural time. Quality Stroke Contraindication Not Initiating IV-Tpa: Not indicated Onset of Symptoms Date: 08/24/21 Onset of Symptoms Time: 00:00 Symptom Onset Unknown: Yes (last known normal midnight.)
[2021-08-27] MEDS: AMLODIPINE 5 MG TABLET PO (14:52)
[2021-08-27] MEDS: ATORVASTATIN 20 MG TABLET 40 MG PO (21:02)
[2021-08-28] VITALS: BP 126/79; PULSE 75; RESP 18; TEMP 36.7; O2SAT 95
[2021-08-28 04:00] VITALS: BP 159/86; PULSE 76; RESP 18; TEMP 36.7; O2SAT 95
[2021-08-28 08:00] VITALS: BP 152/51
[2021-08-28 08:16] VITALS: O2SAT 95
[2021-08-28] MEDS: AMLODIPINE 5 MG TABLET PO (08:20)
[2021-08-28] MEDS: INSULIN LISPRO 100 UNIT/ML 3ML VIAL SUBCUT ×2 (08:20→12:21)
[2021-08-28] MEDS: ENOXAPARIN 40 MG/0.4 ML SYRINGE SUBCUT (08:20)
[2021-08-28] MEDS: ASPIRIN EC 81 MG TABLET PO (08:20)
[2021-08-28] MEDS: lisinopriL 20 MG TABLET PO (08:20)
[2021-08-28] MEDS: INSULIN GLARGINE 100 UNIT/ML 3ML PEN 10 UNIT SUBCUT (08:21)
[2021-08-28 10:20] VITALS: PULSE 75; RESP 18; TEMP 36.9; O2SAT 94
--- NOTE | 2021-08-28 10:47 | CM.DPC ---
Addendum entered by TRENTON Villar 08/28/21 14:24: ADD: Call from [facility] at [facility] and just obtained insurance auth and could accept pt today if by 1700. EARNEST faxed Medicaid transport request form and received call back that [facility] can transport around 1450 today. EARNEST updated RN and placed order for COVID swab stat and RN report number is [phone] and RN kindly updating pt. EARNEST updated MD and requested d/c summary for pt discharge soon unfortunately only time [facility] could transport pt and EARNEST updated ELECTION CLERK and airport tower controller. Plan: Patient to d/c to [facility] today via Medicaid cabulance [facility] around 1445 prior to safe return home. TRENTON Villar Original Note: DCP [facility] Per MD, pt medically stable to d/c to [facility] today. EARNEST called [facility] and confirmed that they insurance auth was submitted with [facility] and she was agreeable calling them to inquire about where pt is in their review process. [email or web address] states they had not started processing his auth request yet and requested [facility] call back in a few hours. [facility] also confirms pt will need updated COVID swab within 48 hours of admission. [facility] also states they could accept pt once auth is obtained, either later today or tomorrow pending time of auth received. E[facility]NEST confirms they still do not provide their own transport and per PT discussion with EARNEST today pt cannot safely go by POV and will need cabulance due to mechanical lift/max 2PA for transfers. EARNEST met bedside with pt and explained role and discussed awaiting insurance auth for [facility] and undetermined if [employer] will make their determination by today or tomorrow. Pt still clearly wants [facility] [place]. EARNEST discussed transport and pt aware a liability attempting to get him into POV even with his sister, who is an RN, helping. Pt is unsure if he has Medicaid transportation benefits. EARNEST called medicaid and confirmed pt has Transportation benefits and has never utilized them yet and would just need SW to complete the Medicaid transport request form and fax in when ready for d/c. EARNEST updated pt and he is agreeable with Medicaid cabulance at d/c. Plan: EARNEST to follow closely for [employer] auth for Acute [facility] and setting up Medicaid Cabulance at discharge and have RN get COVID swab this afternoon. TRENTON Villar
[2021-08-28 11:30] VITALS: BP 189/106; PULSE 87; RESP 20; O2SAT 98
--- NOTE | 2021-08-28 11:50 | PT.IPTN ---
Current Diagnoses Type 2 diabetes mellitus without complications (08/24/21) Cerebral infarction, unspecified (08/24/21) Other specified counseling (08/24/21) Physical Therapy Treatment Note M2 PT-IP Current Condition Start: 08/24/21 16:20 Freq: NEEDED Status: Active Protocol: Document 08/24/21 15:05 AB (Rec: 08/24/21 16:41 AB [id number]) Physical Therapy Current Condition Current Condition Evaluation Date 08/24/21 Treatment Diagnosis L CVA R rodolfo; difficulty in walking Onset Date 08/24/21 M3 PT-IP Subjective Start: 08/24/21 16:20 Freq: NEEDED Status: Active Protocol: Document 08/28/21 11:50 AW (Rec: 08/28/21 12:25 AW [id number]) Subjective Physical Therapy Visit Type Type Treatment Note Visit Start Time 11:10 Visit Stop Time 11:50 Total Visit Minutes 40 Notes Pt's daughter, Amalia, was in the room today Number of CHICKEN HANGER Visits 0 Physical Therapy Visit Comments Patient Comments agreeable to do PT M4 PT-IP Mobility and Gait Start: 08/24/21 16:20 Freq: NEEDED Status: Active Protocol: Document 08/28/21 11:50 AW (Rec: 08/28/21 12:25 AW [id number]) PT-Bed Mobility Assessment Supine to Sit Supine to Sit Maximum Assistance,Head of Bed Elevated,Bedrails Sit to Supine Sit to Supine Maximum Assistance,1 Person Assistance,Bedrails Scooting Scooting to Edge of Bed Maximum Assistance Scooting Up and Down in Bed Minimal Assistance PT-Transfer Assessment Sit to and From Stand Sit to and from Stand Maximum Assistance,1 Person Assistance,2 Person Assistance ,Use of Upper Extremities Equipment Transfer Assistive Device Gait Belt,Rodolfo Walker Orthotic/Prosthetic Devices or Brace: No Comments Mobility Comments Pt was lying on his right side as PT entered the room. He rolled to his back SBA and completed supine exercises: bridge with PT supporting right foot placement 5 sec hold, isometric adduction with hip/knee flexed 10 sec with occ CGA, AAR[employer] heel slides. Max A to roll left and sit up in the left EOB. Weightshifting laterally to scoot hips forward on the bed and place feet on the floor. PT provided assist for RUE hand placement on the bed and approximation through shoulder joint. Pt SOB - BP 207/117 HR 91 SpO2 98% RA. Pt sat with improved midline awareness today and was able to reach with LUE up/down/fwd/across midline with good weightshifting and seated balance. Pt resisted trunk perturbations in all planes except rotation. Sitting BP 3 minutes after initial reading was 189/106 HR 87. PT supported RUE as pt stood max A and elevated LUE to the HW. He stood 60 seconds but complained of left-sided weakness today and did not feel stable for transfer. Pt sat with poor eccentric control in spite of max cues to reach back with LUE. Pt agreed to stand again and was able in similar fashion to stand for 50 seconds before needing to sit. BP after one minute rest was 160/108 HR 90. Pt was able to lean his trunk leftward for left sidelying as PT provided max A to elevate LE to the bed. PT managed RUE as pt rolled right and remained in sidelying as PT departed. Call light was in reach and pt's daughter remained in the room. PT-Balance Assessment Sitting Balance and Reactions Static Sitting Balance Ability Fair Dynamic Sitting Balance Ability Fair Standing Balance and Reactions Static Standing Balance Ability Poor Dynamic Standing Balance Ability Poor Device Used HW M5 PT-IP Objective Assessments Start: 08/24/21 16:20 Freq: NEEDED Status: Active Protocol: Document 08/24/21 15:05 AB (Rec: 08/24/21 16:41 AB [id number]) Orientation Orientation/Cognition Level of Alertness Alert Orientation Name,Place,Situation Safety Awareness Decreased Safety Awareness Gross Range of Motion Lower Extremity ROM Impairments Pt with extensor tone on RLE affecting PROM in flexion Strength Lower Extremity Strength Assessment Right Impaired Comments Strength Comments R LE hip/knee flexion: 1/5 RLE hip/knee extension: 2-/5 R ankle DF/PF: 0/5 Sensation Assessment Sensation Gross Sensation WNL Muscle Tone Muscle Tone WNL No Muscle Tone Location Right Lower Extremity Type of Tone Extensor Severity of Tone Moderate M6 PT-IP Treatment Start: 08/24/21 16:20 Freq: NEEDED Status: Active Protocol: Document 08/28/21 11:50 AW (Rec: 08/28/21 12:25 AW [id number]) Physical Therapy Treatment Education Education Provided Safety Other Treatments Other Treatment Performed pls refer to mobility section for LE exercises completed M7 PT-IP Assessment and Plan Start: 08/24/21 16:20 Freq: NEEDED Status: Active Protocol: Document 08/28/21 11:50 AW (Rec: 08/28/21 12:25 AW [id number]) PT Summary Assessment and Plan Potential Rehabilitation Potential Good Summary Impairments Pain,ROM,Strength,Balance, Coordination,Sensation,Tone, Cognition,Bed Mobility, Transfers,Gait,Activity Tolerance Progress Towards Goals Slow Progress due to Medical Issues,Slow Progress - Other Assessment Summary Pt's midline awareness is improving and he was able to hold isometric hip adduction ~ 10 seconds today. Standing tolerance improved to 60 seconds with HW and max assist but pt states he feels weaker on the left side today and not stable enough to transfer. Communicated firm recommendation for sindy transfers to nursing team. Pt is highly motivated and remains an excellent candidate for acute rehab. Goals Bed Mobility Goal Minimal Assistance Transfer Goal Minimal Assistance Gait Goal Minimal Assistance,Rodolfo Walker Gait Distance 25 Other Goals improve bed mobility SBA, transfers using hemiwalker to CGA and ambulation using hemiwalker 50 ft CGA Days to Meet Goals 10 Frequency of Treatment Frequency Of Treatment Once a Day Treatment Plan Physical Therapy Treatment Plan Bed Mobility Training,Transfer Training,Gait Training, Therapeutic Exercise,Balance Retraining,Discharge Planning, Hot or Cold Pack,Neuromuscular Re-ed,Coordination Retraining ,Manual Therapy Other Recommendations and Next Treatment pre-standing activities; Focus sitting balance; standing tolerance and standing balance with HW Recommendations To Nursing Amount of Assist Needed Mechanical Lift Discharge Recommendations PT Discharge Recommendations Acute Rehab Transportation Needs at Discharge Wheelchair/Cabulance
--- NOTE | 2021-08-28 13:51 | PC.NURSE ---
Addendum entered by Della Patino R.N. 08/28/21 15:42: Report called to [facility]. Patients covid was negative and copy faxed to facility Original Note: Assess- Patient is alert and oriented x3. He has right sided joaquín, he has a hard time lifting his arm and leg up, his smile is asymmetrical and he has aphagia when talking, his speech is slurred but you can understand him. Patient is a one to two person assist with walker and gaitbelt. He denies pain or discomfort. Patient has a visitor that is staying the night with him, this is his oldest daughter
--- NOTE | 2021-08-28 14:24 | PM.DS.1 ---
History of Present Illness History of Present Illness Chief complaint: possible stroke Narrative: This is a 50-year-old male with a past medical history of diabetes and prior small stroke according to him, has not seen a primary care doctor in many years.? He woke up this morning with an inability to move his right side, as well as a facial droop and slurred speech.? His last known normal was when he went to sleep last night which was at midnight.? He denies any numbness on his right side, and the right side of his face is actually slightly hypersensitive currently.? He denies any recent fever, chills, chest pain.? He has had intermittent palpitations, but mainly with exertion.? He denies any shortness of breath, abdominal pain, nausea, vomiting, dysuria, urinary frequency, lower extremity edema. In the emergency room, the patient was markedly hypertensive, chemistries revealed a mild hyponatremia with sodium of 133, but glucose was elevated at 253.? Troponin was indeterminate at 0.061.? Urine drug screen was negative.? Alcohol level was negative.? COVID-[address] testing was [address] head without contrast was unremarkable, as was a CT angiogram of the head and neck, with no significant stenosis.? Telestroke was consulted in the emergency room, given no significant large vessel occlusion and that he was outside the tPA window they recommended medical management with aspirin. Discharge Providers Provider Date of admission: 08/24/21 09:09 Discharge Date: 08/28/21 Consults: 08/24/21 09:18 Consult to Occupational Therapy Evaluate & Treat Comment: Physician Instructions: Evaluate and treat Consult to Physical Therapy Evaluate & Treat Comment: Physician Instructions: Evaluate and Treat Consult to Speech Therapy Evaluate & Treat Comment: Physician Instructions: Evaluate and treat 08/25/21 17:13 Consult to Dietitian, Adult Routine Comment: Reason For Exam: A1C 9.2 Discharge provider: Mohan Anne MD Summary Hospital Course Discharge Diagnosis: 1. Acute CVA with right sided hemiplegia 2. Hypertension 3. Type 2 Diabetes, started on insulin 4. Cardiac demand ischemia Hospital Course: Mr. Teague was admitted with new onset right sided weakness. CT angio head/neck showed no large stenosis or thrombus. MRI confirmed a stroke with a left pontine infarct. He was started aspirin and a high dose statin. TTE showed no acute process. He was diagnosed with diabetes and started on lantus, a1c was 9.4. He was hypertensive and started on lisinopril and and amlodipine. His blood sugars and blood pressure should be monitored closely at rehab and medications adjusted as needed. He did have cardiac demand ischemia secondary to the above changes, but troponin was downtrending and he had no cardiac symptoms and nonspecific EKG changes. He was discharged to inpatient acute rehab for further therapy. CODE: DNR Exam Vital Signs (past 8 hours): - 08/28/21 08:00 08/28/21 08:16 08/28/21 10:20 Temperature 98.5 F Pulse Rate 75 Respiratory Rate 18 Blood Pressure 152/51 H Pulse Oximetry 95 94 08/28/21 11:30 Temperature Pulse Rate 87 Respiratory Rate 20 Blood Pressure 189/106 H Pulse Oximetry 98 Oxygen Delivery Method Room Air Oxygen Flow Rate 0 Narrative Exam Narrative: CV: Heart is regular rate and rhythm without murmur PULM: Lungs are clear to auscultation bilaterally NEURO: tongue deviates left, significant weakness on the right, with slight proximal right leg and right arm movement\, but no distal right leg/arm movement. Speech slurred? Objective Labs Result Diagrams: 08/27/21 04:30 08/27/21 04:30 [facility] Medical History (Updated 08/24/21 @ 10:55 by Giovany Marrero DO) CVA (cerebral vascular accident) Diabetes mellitus Surgical History (Updated 08/24/21 @ 10:55 by Giovany Marrero DO) No significant past surgical history Family History (Updated 08/24/21 @ 11:00 by Giovany Marrero DO) Mother Hypertension Father No pertinent past medical history Social History household members: children Smoking Status: Former smoker alcohol intake: never Discharge Plan Discharge Plan Patient Disposition: Xfer Inpatient Rehab Other facility: inpatient rehab Under care of provider: Facility [facility] Provider Discharge Comment: transfer for rehab after recent stroke Discharge orders & Medications Discharge Orders: Discharge (Order); Ordered 08/26/21 Ordered By: David Cooley Prescriptions: New aspirin 81 mg Tablet,Delayed Release (Dr/Ec) 81 mg PO DAILY Qty: 30 0RF atorvastatin [Lipitor] 20 mg Tablet 40 mg PO BEDTIME Qty: 30 0RF lisinopril 20 mg Tablet 20 mg PO DAILY Qty: 30 0RF Lantus Solostar U-100 Insulin 100 unit/mL (3 mL) Insulin Pen 10 unit SUBCUT DAILY Qty: 30 0RF amlodipine [Norvasc] 5 mg Tablet 5 mg PO DAILY Qty: 30 0RF Discharge Health Status Multidrug resistant organism: No MDRO Diet/Activity/Treatments Diet: Carb-consistent/Diabetic Liquid consistency: Normal/Thin Food texture: Regular [facility] Rehab type: Physical therapy, Occupational therapy and Speech therapy Quality Stroke Contraindication Not Initiating IV-Tpa: Not indicated Onset of Symptoms Date: 08/24/21 Onset of Symptoms Time: 00:00 Symptom Onset Unknown: Yes (last known normal midnight.)
--- NOTE | 2021-08-28 14:34 | OT.IP.TRT ---
Current Diagnoses Type 2 diabetes mellitus without complications (08/24/21) Cerebral infarction, unspecified (08/24/21) Other specified counseling (08/24/21) Occupational Therapy Treatment Note M2 OT-IP Current Condition Start: 08/25/21 11:44 Freq: Status: Active Protocol: Document 08/25/21 11:44 [facility] (Rec: 08/25/21 12:08 [facility] [id number]) Occupational Therapy Current Condition Current Condition Evaluation Date 08/25/21 Treatment Diagnosis CVA, right hemiplegia Diagnosis Onset Date 08/25/21 M3 OT- IP Subjective and Pain Start: 08/25/21 11:44 Freq: Status: Active Protocol: Document 08/28/21 14:39 [facility] (Rec: 08/28/21 15:06 [facility] [id number]) OT- Subjective Occupational Therapy Visit Type Type Progress Note Visit Start Time 14:04 Visit Stop Time 14:34 Total Visit Minutes 30 OT Pain Assessment Pain When Pain Assessed At Rest Pain Present Pain Present Denied Pain M4 OT- IP ADL's Start: 08/25/21 11:44 Freq: Status: Active Protocol: Document 08/28/21 14:39 [facility] (Rec: 08/28/21 15:06 [facility] [id number]) OT [id number] Comments OT Self-Feeding Comments not meal time OT ADL-Grooming Comments OT Grooming Comments not performed OT ADL-Oral Care Comments Oral Care Comments not performed OT ADL-Dressing General Eval Upper Body Dressing Ability Moderate Assistance Lower Body Dressing Ability Moderate Assistance,Maximum Assistance Areas Needing Assistance Pull-Over Shirt,Pants/Shorts Comments OT Dressing Comments Pt needed assist to thread pants then to pull pants up. Pt needed mod assist for donning shirt. OT ADL-Toileting Comments OT Toileting Comments not performed OT ADL-Bathing Comments OT Bathing Comments not performed M5 OT- IP IADL's Start: 08/25/21 11:44 Freq: Status: Active Protocol: Document 08/25/21 11:44 [facility] (Rec: 08/25/21 12:08 [facility] [id number]) OT-Instrumental Activities of Daily Living Home Safety Awareness Awareness of Need for Assistance at Home Good Awareness Ability to Problem Solve Emergency Able to Problem Solve Situations Home Safety Comments Pt able to solve home safety situations with increased time . Pt states now needing increased time to think. M6 OT- IP Functional Cognition Start: 03/11/22 11:44 Freq: Status: Active Protocol: Document 08/26/21 11:13 [facility] (Rec: 08/26/21 12:37 [facility] [id number]) Cognitive Factors Limiting Selfcare Function Cognitive Comments Cognitive Assessment Comments Pt a little impulsive and needing vc to slow down. Pt is very motivated to get better. Able to talk to pt with PT regarding what to except fro his recovery and to be patient with himself and that it will take effrot, patience, and that geeting better is not just a matter of getting stronger. M7 OT- IP Mobility and Balance Start: 08/25/21 11:44 Freq: Status: Active Protocol: Document 08/28/21 14:39 [facility] (Rec: 08/28/21 15:06 R [id number]) OT-Transfer Assessment Sit to and From Stand Sit to and from Stand Moderate Assistance Devices Transfer Assistive Devices Gait Belt,Rodolfo Walker Comments Mobility Comments Pt was able to state that he needed his right foot positioned for ability to stand. Sit to stand from chair with min to mod a but difficulty balancing in standing. OT- Balance Assessment Sitting Balance and Reactions Static Sitting Balance Ability Normal M8 OT- IP Objective Assessments Start: 08/25/21 11:44 Freq: Status: Active Protocol: Document 08/26/21 11:13 [facility] (Rec: 08/26/21 12:37 [facility] [id number]) OT Strength Upper Extremity Strength Assessment Right Impaired Shoulder 2- Elbow 2- Forearm 0 Wrist 0 Hand 0 Comments Strength Comments Noted more movement in his shoulders when assisting him with shoulder elevation and retraction today. OT- Coordination Assessment Upper Extremity Finger to Nose Test Right UE Impaired M9 OT- IP Assessment and Plan Start: 08/25/21 11:44 Freq: Status: Active Protocol: Document 08/28/21 14:39 [facility] (Rec: 08/28/21 15:06 [facility] [id number]) OT Summary Assessment and Plan Potential Rehabilitation Potential Excellent Analytic Complexity at Evaluation High Summary OT Impairments Strength,Balance,Coordination, Tone,Functional Mobility,Self- Feeding,Grooming,Dressing, Toileting,Bathing,Toilet Transfers,Shower Transfers, Activity Tolerance Progress Towards Goals Progressing Toward Goals Assessment Summary Pt participated in RUE tapping without sucessful movement to the hand. Pt requesting sling for support of the R shld. Discussed with pt and suggested that he ask his OT at rehab. Educated on pillow placement for better support. Pt notified that we was leaving for rehab shortly and assisted with dressing for transfer. Pt left sitting up in chair at end of session. Goals Self-Feeding Goal Independent Grooming Goal Independent Dressing Goal Independent Toileting Goal Independent Bathing Goal Independent Toilet Transfer Goal Independent Shower Transfer Goal Independent OT-Other Goals Pt to incorporate use of RUE during ADL and mobility needs. All goals above with consideration of pt's use of RUE for needs, pt is right hand dominant. Days to Meet Goals 59 Frequency of Treatment Frequency Of Treatment Once a Day Treatment Plan OT Treatment Plan ADL Training,Functional Mobility,Neuromuscular Re- education,Patient/Family Education,Discharge Planning Discharge Recommendations OT Discharge Recommendations Acute Rehab Transportation Needs at Discharge Wheelchair/Cabulance
--- NOTE | 2021-08-28 15:04 | SLP.IPNOTE ---
Provided pt with written instructions for exercises from previous session to strengthen oral motor skills for improved speech intelligibility. Pt was in process of being discharged, so did not review exercises with him.
[2021-08-28 15:13] LABS: COVID19 -Nasal RAPID Negative (Negative)
== END 2021-08-28 14:45 | DRG 45 ==
LOC: ED 08:47 → ICU 10:27 → AC 08-27 22:05
PROVIDERS: Internal Medicine; Admitting Provider Internal Medicine; Emergency Provider Emergency Medicine; Referring Provider Emergency Medicine; Visit Provider Internal Medicine
DX: I63.9 Cerebral infarction, unspecified (principal); G81.91 Hemiplegia, unspecified affecting right dominant side; I24.8 Other forms of acute ischemic heart disease; I10 Essential (primary) hypertension; E11.9 Type 2 diabetes mellitus without complications; Z66 Do not resuscitate; Z87.891 Personal history of nicotine dependence; Z20.822 Contact with and (suspected) exposure to COVID-19
CPT/HCPCS: 36415; 70450; 70496; 70498; 70551; 71045; 80048; 80053; 80061; 80305; 80320; 81003; 82550; 82553; 82962; 83036; 83735; 83880; 84443; 84484; 85025; 85027; 85610; 85730; 87635; 87797; 92526; 92610; 93005; 93010; 93306; 94760; 96360; 96361; 97110; 97112; 97162; 97167; 97530; 97535; 99285; 99291; 99292; C9803; J1650; J1815